=== PATIENT | female | born 1940 | race Caucasian/White ===

== ENCOUNTER → 2016-06-05 | Outpatient (CLI) | payer OTHER ==
[2016-06-05 13:31] LABS: BASO % 0.7 %; BASO ABS # 0.06 K/uL (0-0.2); COMPLETE YES; EOS % 1.8 %; HEMATOCRIT 41.6 % (37-47); IG% 0.1 %; LYMPH % 40.2 %; LYMPH ABS # 3.27 K/uL (1.2-3.4); MEAN CELL VOLUME 86.7 fL (80-100); MEAN CORPUSCULAR HEMOGLOBIN 27.9 pg (25-34); MEAN CORPUSCULAR HGB CONC 32.2 g/dl (32-36); MEAN PLATELET VOLUME 9.1 fL (7.4-10.4); NEUT % 48.2 %; PLATELET COUNT 282 K/uL (130-400); WHITE BLOOD COUNT 8.13 K/uL (4.8-10.8)
[2016-06-05 13:41] LABS: BLOOD UREA NITROGEN 10 mg/dl (7-18); CREATININE 0.92 mg/dl (0.60-1.20); GLUCOSE 112 mg/dl (70-99)
[2016-06-05 13:42] LABS: AST/SGOT 8 U/L (15-37); BUN/CREATININE RATIO 10.9 (10-20); CALCIUM 9.3 mg/dl (8.5-10.1); CARBON DIOXIDE 28 mmol/L (21-32); CHLORIDE 105 mmol/L (98-107); SODIUM 141 mmol/L (136-145)
[2016-06-05 13:52] LABS: ALT/SGPT 14 U/L (12-78); CHOLESTEROL 214 mg/dl (0-200); CHOLESTEROL/HDL RATIO 5.2; HDL CHOLESTEROL 41 mg/dl; LDL CHOLESTEROL CALCULATED 133 mg/dl; TRIGLYCERIDES 199 mg/dl (0-150); VERY LOW DENSITY LIPOPROT CALC 40 mg/dl
== END | disposition home or self-care (01) ==
LOC: C.LABMFLN 14:06
PROVIDERS: ATTEND Family Medicine
DX: E78.00 Pure hypercholesterolemia, unspecified (principal); K11.7 Disturbances of salivary secretion; R53.82 Chronic fatigue, unspecified

== ENCOUNTER → 2016-07-01 | Outpatient (CLI) | payer OTHER ==
[2016-07-01 18:13] LABS: THYROID STIMULATING HORMONE 4.27 uIu/ml (0.300-4.500)
== END | disposition home or self-care (01) ==
LOC: C.LABMFLN 07:40
PROVIDERS: ATTEND Family Medicine
DX: R94.6 Abnormal results of thyroid function studies (principal)

== ENCOUNTER → 2016-08-18 | Outpatient (CLI) | payer OTHER | END | disposition home or self-care (01) | LOC: C.LABMFLN 15:22 | PROVIDERS: ATTEND Family Medicine | DX: M81.0 Age-related osteoporosis without current pathological fracture (principal); E03.9 Hypothyroidism, unspecified ==

== ENCOUNTER → 2016-11-17 | Outpatient (CLI) | payer OTHER | END | disposition home or self-care (01) | LOC: C.LABMFLN 15:12 | PROVIDERS: ATTEND Family Medicine | DX: E03.9 Hypothyroidism, unspecified (principal); E21.3 Hyperparathyroidism, unspecified; E55.9 Vitamin D deficiency, unspecified ==

== ENCOUNTER → 2017-07-01 | Outpatient (CLI) | payer OTHER ==
[2017-07-01 18:29] LABS: T3 FREE 2.91 pg/ml (2.30-4.20)
== END | disposition home or self-care (01) ==
LOC: C.LABMFLN 12:48
PROVIDERS: ATTEND Family Medicine
DX: E78.00 Pure hypercholesterolemia, unspecified (principal); E03.9 Hypothyroidism, unspecified; E21.3 Hyperparathyroidism, unspecified; M81.0 Age-related osteoporosis without current pathological fracture; E55.9 Vitamin D deficiency, unspecified

== ENCOUNTER 2023-11-29 15:04 | Inpatient (IN) ==
[2023-11-29] MEDS: methylPREDNISolone 125 MG/2 ML VIAL IV STA (15:52)
[2023-11-29] MEDS: ALBUT/IPRATROP 3MG/0.5MG NEB 3 ML VIAL NEB ONE (15:52)
[2023-11-29 16:08] LABS: HCO3 VBG 30 mmol/L; Oxygen Saturation VBG < 60.0 %; PCO2 VBG 59 mmHg (38-50); PO2 VBG < 20 mmHg; pH VBG 7.31 (7.36-7.41)
--- NOTE | 2023-11-29 16:10 | XRay Report ---
XR chest 1V portable HISTORY: 83 years-old Female sob acute shortness of breath COMPARISON: Chest CT 03/11/2023 TECHNIQUE: AP view of of the chest FINDINGS: Cardiac silhouette is normal. Severe pulmonary emphysema with chronic interstitial coarsening. The krysta jyoti appear grossly intact. Mild bibasilar subsegmental densities. No pneumothorax or pleural effusion . IMPRESSION: 1. Severe pulmonary emphysema. 2. Mild bibasilar opacities may represent atelectasis versus pneumonitis. ACT 112: Negative or not required by law. The above report was generated using voice recognition software. It may contain grammatical, syntax o r spelling errors. Electronically signed by: Tylor Torres M.D. 11/29/2023 4:09 PM
[2023-11-29 16:27] LABS: Basophils # (auto) 0.06 K/uL (0.00-0.20); Basophils % (auto) 0.6 %; Eosinophils # (auto) 0.07 K/uL (0.00-0.50); Eosinophils % (auto) 0.7 %; Hematocrit (blood only) 38.4 % (37.0-47.0); Hemoglobin 12.5 g/dl (12.0-16.0); Immature Granulocytes # (auto) 0.03 K/uL (0.01-0.20); Immature Granulocytes % (auto) 0.3 %; Lymphocytes # (auto) 1.71 K/uL (1.20-3.40); Lymphocytes % (auto) 18.1 %; Mean Corpuscular Hemoglobin 28.5 pg (25.0-34.0); Mean Corpuscular Hgb Conc 32.6 g/dL (32.0-36.0); Mean Corpuscular Volume 87.7 fL (80.0-100.0); Mean Platelet Volume 8.1 fL (9.4-12.4); Monocytes % (auto) 10.6 %; Neutrophils # (auto) 6.59 K/uL (1.40-6.50); Neutrophils % (auto) 69.7 %; Platelet Count 458 K/uL (130-400); RDW Coefficient of Variation 12.8 % (11.5-14.5); RDW Standard Deviation 41.2 fL (36.4-46.3); Red Blood Count 4.38 M/uL (4.20-5.40); White Blood Count 9.46 K/ul (4.8-10.8)
[2023-11-29 16:35] LABS: BUN Creatinine Ratio 9.5 (10-20); Calcium 9.6 mg/dl (8.6-10.3); Est GFR (African American) 88.1 ml/min
[2023-11-29 17:07] LABS: Influenza A virus by PCR Negative (Neg); Influenza B virus by PCR Negative (Neg); RSV by PCR Negative (Neg); SARS CoV2 RNA(COVID-19) Ceph NEGATIVE (Negative)
--- NOTE | 2023-11-29 17:09 | History & Physical Report ---
Date of Service November 29, 2023 Assessment & Plan (1) COPD exacerbation: Plan: Worsening cough and shortness of breath on exertion with significant hypoxia on exertion Cepheid PCR negative Solu-Medrol 125mg IV given in the ER, continue 40mg IV daily Duonebs q4h Formoterol/budesonide Nebs BID Azithromycin 500mg PO daily for 3 days Discussed with patient that likely surgery on will need to be delayed to optimize breathing before (2) Acute respiratory failure with hypoxia and hypercapnia: Plan: Baseline 2LPM O2 Requiring BiPAP initially in the ER but now back on baseline O2 but still with significant exertional even conversational hypoxia Aim O2 sats 88-92% even if this is less than her usual 2 LPM O2 (3) Right upper quadrant abdominal pain: Plan: Reportedly plans for cholecystectomy on after seeing her general surgeon today. Recommend discussing with anesthesia when they wish to perform this after her COPD exacerbation. Low fat diet Plan Hypothyroidism - continue levothyroxine GERD - continue famotidine HTN - continue diltiazem VTE prophylaxis - heparin 5000 units SQ BID Diet - low fat Disposition - observation to med/surg Admission and Anticipated Discharge Date Admission Date: November 29, 2023 History of Present Illness Chief Complaint: Shortness of breath Primary Care Provider: Benny Fong MD Inés Tavarez is an 83-year-old female with COPD who presents to the ER with shortness of breath on exertion for approximately one week. She has a nonproductive cough but feels there is much to cough up but struggling to do so. In the ER after BiPAP, duoneb and Solu-medrol she is back on her baseline oxygen but drops to mid 80s even with full sentences. She reports this feels like her previous COPD exacerbations. Baseline 2 L/min O2 chronically. She has been putting off coming to the emergency room all week as she did not want to miss her surgery appointment which she had earlier today with plans for cholecystectomy due to abdominal pain which has been ongoing intermittently but more frequent episodes since February 2023. She notes this abdominal pain can happen at any time. She has had EGD, colonoscopy, CTs, HIDA scan, MRI without definitive explanation for her pain. She notably does have chronic pancreatitis changes on her CT. This abdominal pain can happen at any time but is more more every day without rhyme or reason, she feels she bloats up and has cramping abdominal pain. Associated nausea and vomiting. The abdominal pain is more on the right side but could also be generalized at times. She reports taking MiraLAX as she gets constipated. She is not currently having abdominal pain when seen in the emergency room. Allergies Allergy/AdvReac Type Severity Reaction Status Date / Time nickel Allergy Intermediate cheap Verified 11/29/23 18:36 jewelry - skin irritation levofloxacin [From Levaquin] Allergy Unknown Unknown Verified 11/29/23 18:36 simvastatin [From Zocor] Allergy Unknown Unknown Verified 11/29/23 18:36 aspirin AdvReac Intermediate stomach Verified 11/29/23 18:36 burning (on an empty stomach) ondansetron [From Zofran] AdvReac Intermediate tremor - Verified 11/29/23 18:36 takes Rx sparingly Home Medications Medication Instructions Recorded Confirmed Type Oxygen humidifier for concentrator #1 ea 03/29/23 11/29/23 Rx ipratropium 20 mcg-albuterol 100 1 puff inhalation QID PRN 04/05/23 11/29/23 Rx mcg/actuation mist for inhalation shortness of breath or wheezing #4 (Combivent Respimat) grams nebulizers #1 ea 04/09/23 11/29/23 Rx levothyroxine 25 mcg tablet 25 mcg PO QAM #30 tabs 07/22/23 11/29/23 Rx cholecalciferol (vitamin D3) 25 1,000 unit PO QAM 07/27/23 11/29/23 History mcg (1,000 unit) capsule (Vitamin D3) cyanocobalamin (vitamin B-12) 1,000 mcg PO QAM 07/27/23 11/29/23 History 1,000 mcg capsule guaifenesin 600 mg tablet, 1,200 mg PO BID PRN Congestion 07/27/23 11/29/23 History extended release 12 hr (Mucinex) mirtazapine 30 mg tablet 30 mg PO HS 07/27/23 11/29/23 History Portable Oxygen #1 ea 08/26/23 11/29/23 Rx ipratropium 0.5 mg-albuterol 3 mg 3 ml inhalation Q4H PRN wheezing 08/26/23 11/29/23 Rx (2.5 mg base)/3 mL nebulization #180 mL soln diltiazem HCl 120 mg capsule,24 120 mg PO QAM #90 caps 09/17/23 11/29/23 Rx hr,extended release famotidine 20 mg tablet 20 mg PO BID #60 tabs 09/22/23 11/29/23 Rx Wheeled Walker #1 ea 10/04/23 11/29/23 Rx hyoscyamine sulfate 0.125 mg 0.125 mg sublingual BID PRN 10/11/23 11/29/23 Rx sublingual tablet abdominal pain #60 tabs fluoxetine 20 mg capsule 20 mg PO QAM #90 caps 10/27/23 11/29/23 Rx ondansetron HCl 4 mg tablet 4 mg PO Q6H PRN nausea and 11/24/23 11/29/23 Rx vomiting 7 days #60 tabs lorazepam 0.5 mg tablet 0.5 mg PO QID PRN anxiety #120 tabs 11/29/23 11/29/23 Rx Past Med/Surg History Problem List (Updated 11/29/23 @ 23:18 by Per Lott MD) Right upper quadrant abdominal pain Acute respiratory failure with hypoxia and hypercapnia Chronic obstructive pulmonary disease (Acute) Hypoxia (Acute) Weight loss, non-intentional Pulmonary infiltrate Ambulatory dysfunction Cough Hyponatremia Iron deficiency anemia Blood in stool Nausea Epigastric abdominal pain Constipation Dilated pancreatic duct Chronic pancreatitis IPMN (intraductal papillary mucinous neoplasm) Insomnia Chronic bronchitis Chronic respiratory failure with hypoxia Exertional shortness of breath COPD with emphysema Encounter for tobacco use cessation counseling Anxiety Hypoxia COPD exacerbation LLL pneumonia Pancreatic abnormality Hypothyroidism Abnormal weight loss Close exposure to 2019-nCoV Chronic constipation Abnormality of pancreatic duct Abdominal pain Abnormal weight loss COPD mixed type Tobacco abuse Chest pain Dyspnea SVT (supraventricular tachycardia) Abnormal weight loss Intermittent palpitations Chest discomfort Poison ramon dermatitis Hand pain Medicare annual wellness visit, subsequent Medicare annual wellness visit, initial Abnormal thyroid blood test (Acute) Allergic rhinitis (Acute) Chronic low back pain (Acute) Chronic obstructive pulmonary disease (Acute) Depression (Acute) Fatigue (Acute) Generalized anxiety disorder (Acute) Hypercholesterolemia (Acute) Hyperlipidemia (Acute) Hyperparathyroidism (Acute) Hypothyroidism (Acute) Osteoporosis (Acute) Tobacco use (Acute) Vitamin D deficiency (Acute) Medical History Dilated pancreatic duct Chronic cough Hypercholesteremia Chronic low back pain Chronic constipation SOBOE (shortness of breath on exertion) IPMN (intraductal papillary mucinous neoplasm) Hx of chronic respiratory failure Fecal occult blood test positive (06/21/23) Generalized weakness Hx of chest pain pt denies having chest pain or heart attack in the past Abdominal pain "comes and goes" with bloating and acid reflux symptoms. Chronic bronchitis Chronic pancreatitis per record, including record of Intraductal Papillary mucinous neoplasm - pt denies have any problems with her pancreas. Hx of supraventricular tachycardia per chart - pt unsure of details, thinks it is controlled w/ diltiazem, does not follow w/ cardio Chronic nausea Osteoporosis Osteoarthritis Insomnia Chronic fatigue Iron deficiency anemia Hypothyroidism Depression Anxiety Hyperlipidemia Hypertension History of pneumonia 03/2023. treated inpatient in 04/2023 at [facility] for respiratory failure. discharged home on 2lpm of oxygen continuously. On home oxygen therapy 2lpm via n/c continuously. Chronic obstructive pulmonary disease Surgical History History of esophagogastroduodenoscopy (EGD) (2021) History of colonoscopy (2021) History of tonsillectomy and adenoidectomy H/O breast biopsy benign Family History Mother Myocardial infarction Father Cancer Other No family history of adverse response to anesthesia Social History Smoking Status: Former smoker Tobacco Type: Cigarettes Age Started Using Tobacco: 22; Age Quit Using Tobacco: 82; packs per day: 0.75; Second Hand Exposure: Yes (hx); Do You Dip or Chew Tobacco: No; Hx Alcohol Use: No Hx Substance Use: No Preferred Language: Austrian Communication Ability: Effective Pile Header Required: No Beliefs That Will Affect Care: None marital status: Current Living Situation: Spouse current occupational status: unemployed Feels Safe at Home: Yes Dental Care, Regularly: No Physical Activity Frequency: Does not Exercise Seatbelt Use: always Sunscreen Use: Yes Assistive Devices: Glasses, Nebulizer, Oxygen - at Night and Oxygen - Continuous Review of Systems Review of Systems: All systems reviewed & are unremarkable except as noted in HPI & below Physical Exam Constitutional: WD/WN, vitals as above Eyes: PERRL, conjunctivae normal, anicteric sclerae ENMT: external ear and nose normal, oropharynx normal Respiratory: + labored breathing, + uses accessory mu scles, + cough and + tachypneic; + not able to speak in complete sentence Auscultation: + diminished lung sounds (throughout) and + wheezes (mild end expiratory); no crackles Cardiovascular: RRR, no murmur, no edema Gastrointestinal (Abdomen): Inspection/Auscultation: abdomen normal to inspection; abdomen not distended Percussion/Palpation: + abdomen tender (RUQ) and abdomen soft; no guarding and abdomen not rigid Musculoskeletal: no cyanosis or clubbing, extremities motor strength 5/5 Skin: no rashes, warm and dry Neurologic: moves all extremities and awake; not confused Psychiatric: A+Ox3, euthymic affect Results & Data Results & Data Vital Signs (Past 12 Hours) Vital Signs Temp Pulse Pulse Resp BP BP Pulse Ox 11/29/23 17:04 84 20 146/86 H 97 11/29/23 16:03 73 11/29/23 16:01 153/82 H 11/29/23 15:51 87 29 H 99 11/29/23 15:50 90 30 H 99 11/29/23 15:50 71 L 11/29/23 15:38 36.8 C 91 H 19 146/89 H 83 L O2 Del Method O2 Flow Rate 11/29/23 17:04 Nasal Cannula 2 11/29/23 16:03 11/29/23 16:01 11/29/23 15:51 Nasal Cannula 9 11/29/23 15:50 Oxymask 9 11/29/23 15:50 Oxymask 11/29/23 15:38 Nasal Cannula 2 Laboratory Results Abnormal lab results 11/29/23 Range/Units 15:52 Plt Count 458 H (130-400) K/uL MPV 8.1 L (9.4-12.4) fL Neut # (Auto) 6.59 H (1.40-6.50) K/uL [place] # (Auto) 1.00 H (0.11-0.59) K/uL VBG pH 7.31 L (7.36-7.41) VBG pCO2 59 H (38-50) mmHg Sodium 132 L (136-145) mmol/L Chloride 93 L (98-107) mmol/L BUN/Creatinine Ratio 9.5 L (10-20) Glucose 106 H (70-99(Fasting)) mg/dl Diagnostic Findings XR chest 1V portable HISTORY: 83 years-old Female sob acute shortness of breath COMPARISON: Chest CT 03/11/2023 TECHNIQUE: AP view of of the chest FINDINGS: Cardiac silhouette is normal. Severe pulmonary emphysema with chronic interstitial coarsening. The bones appear grossly intact. Mild bibasilar subsegmental densities. No pneumothorax or pleural effusion. IMPRESSION: 1. Severe pulmonary emphysema. 2. Mild bibasilar opacities may represent atelectasis versus pneumonitis. Medications Administered ER medications given: DuoNeb 12 mL neb Solu-Medrol 125 mg IV ECG Rate (beats per minute): 71 Rhythm: normal sinus Findings: no acute ischemic change Comparison ECG Date: no prior available Code Status & VTE Plan Code Status Full VTE Prophylaxis Plan VTE Prophylaxis will be ordered: Yes PG Care Time/CCT Total # of Minutes Spent Total Time Spent with Patient: Total time spent is greater than 50% in coordination of care (as documented) at patient's floor/unit and/or counseling patient: Coding Level of Care Code 59606 INT INP/OBS CARE 2/55MIN Diagnoses COPD exacerbation J44.1 Acute respiratory failure with hypoxia and hypercapnia J96.01; J96.02 Right upper quadrant abdominal pain R10.11
--- NOTE | 2023-11-29 17:41 | Emergency Department Note ---
History of Present Illness General Chief Complaint: Shortness of Breath/Dyspnea Stated Complaint: DIFFICULTY BREATHING Time Seen by Provider: 11/29/23 15:44 History of Present Illness Provider Complaint: shortness of breath and cough Onset (ago): week(s) (1) Severity: similar to previous episodes Consistency/Duration: + progressively worsening Relieved By: + nothing Exacerbated By: + exertion and + coughing Known history of: COPD Associated symptoms: + cough and + wheezing; no fever, no hemoptysis or no chest congestion Treatment prior to arrival: bronchodilator Related Data Home oxygen amount: 2 liters Home Medications Medication Instructions Recorded Confirmed Type Oxygen humidifier for concentrator #1 ea 03/29/23 11/29/23 Rx ipratropium 20 mcg-albuterol 100 1 puff inhalation QID PRN 04/05/23 11/29/23 Rx mcg/actuation mist for inhalation shortness of breath or wheezing #4 (Combivent Respimat) grams nebulizers #1 ea 04/09/23 11/29/23 Rx levothyroxine 25 mcg tablet 25 mcg PO QAM #30 tabs 07/22/23 11/29/23 Rx cholecalciferol (vitamin D3) 25 1,000 unit PO QAM 07/27/23 11/29/23 History mcg (1,000 unit) capsule (Vitamin D3) cyanocobalamin (vitamin B-12) 1,000 mcg PO QAM 07/27/23 11/29/23 History 1,000 mcg capsule guaifenesin 600 mg tablet, 1,200 mg PO BID PRN Congestion 07/27/23 11/29/23 History extended release 12 hr (Mucinex) mirtazapine 30 mg tablet 30 mg PO HS 07/27/23 11/29/23 History Portable Oxygen #1 ea 08/26/23 11/29/23 Rx ipratropium 0.5 mg-albuterol 3 mg 3 ml inhalation Q4H PRN wheezing 08/26/23 11/29/23 Rx (2.5 mg base)/3 mL nebulization #180 mL soln diltiazem HCl 120 mg capsule,24 120 mg PO QAM #90 caps 09/17/23 11/29/23 Rx hr,extended release famotidine 20 mg tablet 20 mg PO BID #60 tabs 09/22/23 11/29/23 Rx prednisone 20 mg tablet 20 mg PO DAILY 10/01/23 11/29/23 History Wheeled Walker #1 ea 10/04/23 11/29/23 Rx hyoscyamine sulfate 0.125 mg 0.125 mg sublingual BID PRN 10/11/23 11/29/23 Rx sublingual tablet abdominal pain #60 tabs fluoxetine 20 mg capsule 20 mg PO QAM #90 caps 10/27/23 11/29/23 Rx ondansetron HCl 4 mg tablet 4 mg PO Q6H PRN nausea and 11/24/23 11/29/23 Rx vomiting 7 days #60 tabs lorazepam 0.5 mg tablet 0.5 mg PO QID PRN anxiety #120 tabs 11/29/23 11/29/23 Rx Allergies Allergy/AdvReac Type Severity Reaction Status Date / Time nickel Allergy Intermediate cheap Verified 11/29/23 13:30 jewelry - skin irritation levofloxacin [From Levaquin] Allergy Unknown Unknown Verified 11/29/23 13:30 simvastatin [From Zocor] Allergy Unknown Unknown Verified 11/29/23 13:30 aspirin AdvReac Intermediate stomach Verified 11/29/23 13:30 burning (on an empty stomach) ondansetron [From Zofran] AdvReac Intermediate tremor - Verified 11/29/23 13:30 takes Rx sparingly Past Med/Surg History Problem List (Updated 11/29/23 @ 17:47 by Background Daemon) Chronic obstructive pulmonary disease (Acute) Hypoxia (Acute) Weight loss, non-intentional Pulmonary infiltrate Ambulatory dysfunction Cough Hyponatremia Iron deficiency anemia Blood in stool Nausea Epigastric abdominal pain Constipation Dilated pancreatic duct Chronic pancreatitis IPMN (intraductal papillary mucinous neoplasm) Insomnia Chronic bronchitis Chronic respiratory failure with hypoxia Exertional shortness of breath COPD with emphysema Encounter for tobacco use cessation counseling Anxiety Hypoxia COPD exacerbation LLL pneumonia Pancreatic abnormality Hypothyroidism Abnormal weight loss Close exposure to 2019-nCoV Chronic constipation Abnormality of pancreatic duct Abdominal pain Abnormal weight loss COPD mixed type Tobacco abuse Chest pain Dyspnea SVT (supraventricular tachycardia) Abnormal weight loss Intermittent palpitations Chest discomfort Poison ramon dermatitis Hand pain Medicare annual wellness visit, subsequent Medicare annual wellness visit, initial Abnormal thyroid blood test (Acute) Allergic rhinitis (Acute) Chronic low back pain (Acute) Chronic obstructive pulmonary disease (Acute) Depression (Acute) Fatigue (Acute) Generalized anxiety disorder (Acute) Hypercholesterolemia (Acute) Hyperlipidemia (Acute) Hyperparathyroidism (Acute) Hypothyroidism (Acute) Osteoporosis (Acute) Tobacco use (Acute) Vitamin D deficiency (Acute) Medical History Dilated pancreatic duct Chronic cough Hypercholesteremia Chronic low back pain Chronic constipation SOBOE (shortness of breath on exertion) IPMN (intraductal papillary mucinous neoplasm) Hx of chronic respiratory failure Fecal occult blood test positive (06/21/23) Generalized weakness Hx of chest pain pt denies having chest pain or heart attack in the past Abdominal pain "comes and goes" with bloating and acid reflux symptoms. Chronic bronchitis Chronic pancreatitis per record, including record of Intraductal Papillary mucinous neoplasm - pt denies have any problems with her pancreas. Hx of supraventricular tachycardia per chart - pt unsure of details, thinks it is controlled w/ diltiazem, does not follow w/ cardio Chronic nausea Osteoporosis Osteoarthritis Insomnia Chronic fatigue Iron deficiency anemia Hypothyroidism Depression Anxiety Hyperlipidemia Hypertension History of pneumonia 03/2023. treated inpatient in 04/2023 at [facility] for respiratory failure. discharged home on 2lpm of oxygen continuously. On home oxygen therapy 2lpm via n/c continuously. Chronic obstructive pulmonary disease Surgical History History of esophagogastroduodenoscopy (EGD) (2021) History of colonoscopy (2021) History of tonsillectomy and adenoidectomy H/O breast biopsy benign Family History Mother Myocardial infarction Father Cancer Other No family history of adverse response to anesthesia Social History Smoking Status: Former smoker Tobacco Type: Cigarettes Age Started Using Tobacco: 22; Age Quit Using Tobacco: 82; packs per day: 0.75; Second Hand Exposure: Yes (hx); Do You Dip or Chew Tobacco: No; Hx Alcohol Use: No Hx Substance Use: No Preferred Language: Bengali Communication Ability: Effective Technical Illustrations Map Inker Required: No Beliefs That Will Affect Care: None marital status: Current Living Situation: Spouse current occupational status: unemployed Feels Safe at Home: Yes Dental Care, Regularly: No Physical Activity Frequency: Does not Exercise Seatbelt Use: always Sunscreen Use: Yes Assistive Devices: Glasses, Nebulizer, Oxygen - at Night and Oxygen - Continuous Physical Exam 2 Vital Signs: Vital Signs - 24 hr 11/29/23 15:38 11/29/23 15:50 11/29/23 15:50 Temperature 36.8 C Temperature Source Temporal Artery Sc an Pulse Rate 91 H Pulse Rate [Apical ] 90 Pulse Rate from Sp O2 Sensor Respiratory Rate 19 30 H Respiratory Effort / Characteristics Non-Labored Sponta neous Short of Breath Respiratory Depth Normal Respiratory Patter n Blood Pressure 146/89 H Blood Pressure [Le ft Arm] Blood Pressure Mabel n 108 Blood Pressure Mabel n [Left Arm] Blood Pressure Pos ition Sitting Pulse Oximetry 83 L 71 L 99 Oxygen Delivery Me thod Nasal Cannula Oxymask Oxymask Oxygen Flow Rate 2 9 Sepsis Recent Feve r Within 48 Hours No Sepsis New/Unexpla ined Change in Men trae Status No Sepsis Action Take n by Nursing No Action Required Oxygen Flow Rate - Titration 9 Pulse Oximetry Pos t Tiitration 99 11/29/23 15:51 11/29/23 16:01 11/29/23 16:03 Temperature Temperature Source Pulse Rate 87 73 Pulse Rate [Apical ] Pulse Rate from Sp O2 Sensor Respiratory Rate 29 H Respiratory Effort / Characteristics Respiratory Depth Respiratory Patter n Blood Pressure 153/82 H Blood Pressure [Le ft Arm] Blood Pressure Mabel n 128 Blood Pressure Mabel n [Left Arm] Blood Pressure Pos ition Pulse Oximetry 99 Oxygen Delivery Me thod Nasal Cannula Oxygen Flow Rate 9 Sepsis Recent Feve r Within 48 Hours Sepsis New/Unexpla ined Change in Men trae Status Sepsis Action Take n by Nursing Oxygen Flow Rate - Titration Pulse Oximetry Pos t Tiitration 11/29/23 16:21 11/29/23 16:30 11/29/23 16:30 Temperature Temperature Source Pulse Rate 82 82 Pulse Rate [Apical ] Pulse Rate from Sp O2 Sensor 82 82 Respiratory Rate 22 24 Respiratory Effort / Characteristics Respiratory Depth Respiratory Patter n Blood Pressure 139/77 Blood Pressure [Le ft Arm] Blood Pressure Mabel n 86 Blood Pressure Mabel n [Left Arm] Blood Pressure Pos ition Pulse Oximetry 100 98 Oxygen Delivery Me thod Oxygen Flow Rate Sepsis Recent Feve r Within 48 Hours Sepsis New/Unexpla ined Change in Men trae Status Sepsis Action Take n by Nursing Oxygen Flow Rate - Titration Pulse Oximetry Pos t Tiitration 11/29/23 16:51 11/29/23 17:00 11/29/23 17:00 Temperature Temperature Source Pulse Rate 82 81 Pulse Rate [Apical ] Pulse Rate from Sp O2 Sensor 82 82 Respiratory Rate 21 Respiratory Effort / Characteristics Respiratory Depth Respiratory Patter n Blood Pressure 142/74 H Blood Pressure [Le ft Arm] Blood Pressure Mabel n 103 Blood Pressure Mabel n [Left Arm] Blood Pressure Pos ition Pulse Oximetry 98 99 Oxygen Delivery Me thod Oxygen Flow Rate Sepsis Recent Feve r Within 48 Hours Sepsis New/Unexpla ined Change in Men trae Status Sepsis Action Take n by Nursing Oxygen Flow Rate - Titration Pulse Oximetry Pos t Tiitration 11/29/23 17:04 11/29/23 17:05 11/29/23 17:18 Temperature Temperature Source Pulse Rate 81 Pulse Rate [Apical ] 84 Pulse Rate from Sp O2 Sensor 80 Respiratory Rate 20 20 Respiratory Effort / Characteristics Non-Labored Sponta neous Respiratory Depth Normal Respiratory Patter n Regular Blood Pressure 146/86 H Blood Pressure [Le ft Arm] 146/86 H Blood Pressure Mabel n 121 Blood Pressure Mabel n [Left Arm] 106 Blood Pressure Pos ition Pulse Oximetry 97 98 Oxygen Delivery Me thod Nasal Cannula Oxygen Flow Rate 2 Sepsis Recent Feve r Within 48 Hours Sepsis New/Unexpla ined Change in Men trae Status Sepsis Action Take n by Nursing Oxygen Flow Rate - Titration Pulse Oximetry Pos t Tiitration Physical Exam: Physical Exam GENERAL: Cachectic and ill-appearing. HENT: Exam performed. - Head: Normocephalic and atraumatic. EYES: Conjunctivae and EOM are normal. Right eye exhibits no discharge. Left eye exhibits no discharge. No scleral icterus. NECK: Normal range of motion. Neck supple. No JVD present. CV: Normal rate, regular rhythm, normal heart sounds and intact distal pulses. There is no peripheral edema. Palpable radial pulses bue. PULM/CHEST: Diffuse expiratory wheezes bilaterally. Tachypneic. ABD: The abdomen is soft. There is no tenderness. NEURO: Motor and sensation grossly intact. SKIN: Skin is warm and dry. He is not diaphoretic. PSYCH: normal mood and affect. Behavior is normal. Judgment and thought content normal. Course Course 1544: The patient was evaluated in room B7. A complete history and physical exam was performed Cardiac monitoring: An order was placed for continuous cardiac monitoring. The monitor shows a rate of 90 with sinus rhythm interpreted by Patient was found to be hypoxic on her home 2 L nasal cannula at 70% on room air. Patient was quickly transitioned to nonrebreather. Will give hour-long breathing treatment and start the patient on BiPAP. Solu-Medrol also ordered for the patient. 1615: Patient tolerating BiPAP well. 1743: Vital signs stable. Patient was able to be transitioned from BiPAP to a regular 2 L nasal cannula after receiving BiPAP for some time and hour-long DuoNeb treatment. Patient states she feels much better. Chest x-ray unremarkable. Labs show white blood cell count 9.46 hemoglobin 12.5 VBG venous pH 7.31 venous pCO2 59. COVID and RSV negative. [facility] Dr. Lott currently evaluating the patient. Administered Medications Discontinued Medications Albuterol (Albut/Ipratrop 3mg/0.5mg Neb 3 Ml Vial) 12 ml NEB ONE ONE; Protocol Stop: 11/29/23 15:49 Last Admin: 11/29/23 15:52 Dose: 12 ml Documented By: MARIA G Methylprednisolone (Methylprednisolone 125 Mg/2 Ml Vial) 125 mg IV NOW STA Stop: 11/29/23 15:49 Last Admin: 11/29/23 15:52 Dose: 125 mg Documented By: MARIA G Medical Decision Making Laboratory Data Attestation: I reviewed the patient's lab results. 11/29/23 15:52 11/29/23 15:52 Lab Results 11/29/23 Range/Units 15:52 WBC 9.46 (4.8-10.8) K/ul RBC 4.38 (4.20-5.40) M/uL Hgb 12.5 (12.0-16.0) g/dl Hct 38.4 (37.0-47.0) % MCV 87.7 (80.0-100.0) fL MCH 28.5 (25.0-34.0) pg MCHC 32.6 (32.0-36.0) g/dL RDW Std Deviation 41.2 (36.4-46.3) fL RDW Coeff of Samy 12.8 (11.5-14.5) % Plt Count 458 H (130-400) K/uL MPV 8.1 L (9.4-12.4) fL Immature Gran % (Auto) 0.3 % Neut % (Auto) 69.7 % Lymph % (Auto) 18.1 % [place] % (Auto) 10.6 % Eos % (Auto) 0.7 % Baso % (Auto) 0.6 % Neut # (Auto) 6.59 H (1.40-6.50) K/uL Lymph # (Auto) 1.71 (1.20-3.40) K/uL [place] # (Auto) 1.00 H (0.11-0.59) K/uL Eos # (Auto) 0.07 (0.00-0.50) K/uL Baso # (Auto) 0.06 (0.00-0.20) K/uL Immature Gran # (Auto) 0.03 (0.01-0.20) K/uL VBG pH 7.31 L (7.36-7.41) VBG pCO2 59 H (38-50) mmHg VBG pO2 < 20 mmHg VBG HCO3 30 mmol/L VBG O2 Saturation < 60.0 % VBG Base Excess 2.0 mEq/L Sodium 132 L (136-145) mmol/L Potassium 4.0 (3.5-5.1) mmol/L Chloride 93 L (98-107) mmol/L Carbon Dioxide 29 (21-32) mmol/L Anion Gap 10 (3-11) BUN 7 (6-23) mg/dl Creatinine 0.74 (0.6-1.2) mg/dl Est Cr Clr Drug Dosing 35.0 ml/min Est GFR ( Amer) 88.1 ml/min Est GFR (Non-Af Amer) 76.0 ml/min BUN/Creatinine Ratio 9.5 L (10-20) Glucose 106 H (70-99(Fasting)) mg/dl Calcium 9.6 (8.6-10.3) mg/dl SARS-CoV-2 (PCR) NEGATIVE (Negative) Influenza Type A (PCR) Negative (Neg) Influenza Type B (PCR) Negative (Neg) RSV (RT-PCR) Negative (Neg) Imaging Data Attestation: I personally reviewed and interpreted this imaging study as follows: My Impression: Chest x-ray: Emphysematous changes no acute infiltrate or pneumothorax. Radiologist's Impression: Chest X-Ray 11/29/23 15:48 XR chest 1V portable HISTORY: 83 years-old Female sob acute shortness of breath COMPARISON: Chest CT 03/11/2023 TECHNIQUE: AP view of of the chest FINDINGS: Cardiac silhouette is normal. Severe pulmonary emphysema with chronic interstitial coarsening. The bones appear grossly intact. Mild bibasilar subsegmental densities. No pneumothorax or pleural effusion. IMPRESSION: 1. Severe pulmonary emphysema. 2. Mild bibasilar opacities may represent atelectasis versus pneumonitis. ACT 112: Negative or not required by law. The above report was generated using voice recognition software. It may contain grammatical, syntax or spelling errors. Electronically signed by: Tylor Torres M.D. 11/29/2023 4:09 PM ECG Data Attestation: I personally reviewed and interpreted this ECG as follows: Interpretation: Sinus rhythm with rate of 71. IA 144 QRS [address] elevation or ST depression. [facility] Narrative 1544: The patient was evaluated in room B7. A complete history and physical exam was performed Cardiac monitoring: An order was placed for continuous cardiac monitoring. The monitor shows a rate of 90 with sinus rhythm interpreted by me Patient was found to be hypoxic on her home 2 L nasal cannula at 70% on room air. Patient was quickly transitioned to nonrebreather. Will give hour-long breathing treatment and start the patient on BiPAP. Solu-Medrol also ordered for the patient. 1615: Patient tolerating BiPAP well. 1743: Vital signs stable. Patient was able to be transitioned from BiPAP to a regular 2 L nasal cannula after receiving BiPAP for some time and hour-long DuoNeb treatment. Patient states she feels much better. Chest x-ray unremarkable. Labs show white blood cell count 9.46 hemoglobin 12.5 VBG venous pH 7.31 venous pCO2 59. COVID and RSV negative. Patient [facility] be [facility]. Dr. Lott currently evaluating the patient. Impression & Plan Hypoxia, Chronic obstructive pulmonary disease Critical Care Time Critical Care Time: Yes Total Critical Care Time: 64 I have personally spent greater than 64 minutes of critical care time in the direct management of this patient. This includes bedside care, interpretation of diagnostic studies, and testing, discussion with consultants, patient, and family members, and other required patient management activities. This 64 minutes is in excess of all separately billable procedures. Discharge Plan Visit Data Chief Complaint: Shortness of Breath/Dyspnea Stated Complaint: DIFFICULTY BREATHING ED Provider: Tera Munoz Discharge Problem: Hypoxia, Chronic obstructive pulmonary disease Patient Disposition: Being Evaluated by Hospitalist Forms Stand Alone Forms: [facility] Prescriptions Prescriptions: No Action (DME) Oxygen humidifier for concentrator See Rx Instructions .Route .MEDSUPPLY Qty: 1 0RF Rx Instructions: As directed Combivent Respimat 20-100 mcg/actuation mist 1 puff inhalation QID PRN (Reason: shortness of breath or wheezing) Qty: 4 11RF Rx Instructions: space evenly during waking hours levothyroxine 25 mcg tablet 25 mcg PO QAM Qty: 30 11RF Rx Instructions: Take about 30 minutes prior to other medication and food. diltiazem HCl 120 mg capsule,extended release 24 hr 120 mg PO QAM Qty: 90 3RF (DME) Wheeled Walker Mis See Rx Instructions .Route Qty: 1 0RF Rx Instructions: [place]rell size, with hand brakes and seat hyoscyamine sulfate 0.125 mg tablet, sublingual 0.125 mg sublingual BID PRN (Reason: abdominal pain) Qty: 60 2RF fluoxetine 20 mg capsule 20 mg PO QAM Qty: 90 3RF ondansetron HCl 4 mg tablet 4 mg PO Q6H PRN (Reason: nausea and vomiting) 7 Days Qty: 60 2RF lorazepam 0.5 mg tablet 0.5 mg PO QID PRN (Reason: anxiety) Qty: 120 0RF (DME) nebulizers [facility] [place] See Rx Instructions .Route Qty: 1 0RF Rx Instructions: As directed ipratropium-albuterol 0.5 mg-3 mg(2.5 mg base)/3 mL solution for nebulization 3 ml inhalation Q4H PRN (Reason: wheezing) Qty: 180 5RF (DME) Portable Oxygen [facility] [place] See Rx Instructions .MEDSUPPLY Qty: 1 0RF Rx Instructions: Oxygen 2 liters continuous at rest and 4 L continuous via nasal cannula on exertion with portable concentrator. ALEXANDRE 99 prednisone 20 mg tablet 20 mg PO DAILY famotidine 20 mg tablet 20 mg PO BID Qty: 60 5RF mirtazapine 30 mg tablet 30 mg PO HS Rx Instructions: for appetite, sleep, and mood. cholecalciferol (vitamin D3) [Vitamin D3] 25 mcg (1,000 unit) capsule 1,000 unit PO QAM guaifenesin [Mucinex] 600 mg tablet extended release 12hr 1,200 mg PO BID PRN (Reason: Congestion) cyanocobalamin (vitamin B-12) 1,000 mcg capsule 1,000 mcg PO QAM Referrals Referrals: Benny Fong MD [Primary Care Provider] -
[2023-11-29] MEDS: AZITHROMYCIN 250 MG TAB PO ONE (18:09)
[2023-11-29] MEDS: ALBUT/IPRATROP 3MG/0.5MG NEB 3 ML VIAL ONE (18:17)
[2023-11-29] MEDS: COUGH DROP (SUGAR FREE) LOZ 24 LOZ/1 BOX BUCCAL STA (19:40)
[2023-11-29] MEDS ORDERED: ONDANSETRON INJ 2 MG/ML 2 ML VIAL IV PRN (20:29)
[2023-11-29] MEDS ORDERED: COUGH DROP (SUGAR FREE) LOZ 24 LOZ/1 BOX BUCCAL PRN (20:29)
[2023-11-29] MEDS ORDERED: HYOSCYAMINE SULFATE 0.125 MG TAB PO PRN (20:49)
[2023-11-29] MEDS: FAMOTIDINE 20 MG TAB PO SCH (21:08)
[2023-11-29] MEDS: ALBUT/IPRATROP 3MG/0.5MG NEB 3 ML VIAL NEB SCH (21:08)
[2023-11-29] MEDS: LORazepam 0.5 MG TAB PO PRN (21:08)
[2023-11-29] MEDS: guaiFENesin 600 MG TABCR PO SCH (21:08)
[2023-11-29] MEDS: BUDESONIDE 0.5 MG/2 ML VIAL (PULMICORT) NEB SCH (21:16)
[2023-11-29] MEDS: FORMOTEROL 20 MCG/2 ML VIAL NEB SCH (21:16)
[2023-11-29] MEDS: MIRTAZAPINE TAB 15 MG TAB PO SCH (21:36)
[2023-11-29] MEDS ORDERED: ENOXAPARIN INJ 30 MG/0.3 ML SYR SQ SCH (21:55)
[2023-11-29] MEDS: HEPARIN SOD 5,000 UNIT/0.5 ML VIAL SQ SCH (23:13)
[2023-11-30] MEDS: ACETAMINOPHEN 325 MG TAB PO PRN (02:24)
[2023-11-30] MEDS: SODIUM CHLORIDE 0.65% NA SOLN 45 ML (OCEAN) PRN (03:18)
[2023-11-30] MEDS: LEVOTHYROXINE SODIUM 25 MCG TABLET PO SCH (06:06)
[2023-11-30 06:17] LABS: BUN Creatinine Ratio 15.9 (10-20); Calcium 8.9 mg/dl (8.6-10.3); Creatinine Clr Calc Pharmacy 41.1 ml/min; Est GFR (African American) 97.5 ml/min; Est GFR (Non-African American) 84.1 ml/min
[2023-11-30 06:31] LABS: Hematocrit (blood only) 33.7 % (37.0-47.0); Hemoglobin 11.2 g/dl (12.0-16.0); Immature Granulocytes # (auto) 0.02 K/uL (0.01-0.20); Immature Granulocytes % (auto) 0.5 %; Lymphocytes # (auto) 0.52 K/uL (1.20-3.40); Lymphocytes % (auto) 13.4 %; Mean Corpuscular Hemoglobin 28.5 pg (25.0-34.0); Mean Corpuscular Hgb Conc 33.2 g/dL (32.0-36.0); Mean Corpuscular Volume 85.8 fL (80.0-100.0); Mean Platelet Volume 8.2 fL (9.4-12.4); Monocytes # (auto) 0.07 K/uL (0.11-0.59); Monocytes % (auto) 1.8 %; Neutrophils # (auto) 3.27 K/uL (1.40-6.50); Neutrophils % (auto) 84.3 %; Platelet Count 362 K/uL (130-400); RDW Coefficient of Variation 12.5 % (11.5-14.5); RDW Standard Deviation 39.2 fL (36.4-46.3); Red Blood Count 3.93 M/uL (4.20-5.40); White Blood Count 3.88 K/ul (4.8-10.8)
[2023-11-30] MEDS: CYANOCOBALAMIN (B-12) 500 MCG TABLET PO SCH (08:19)
[2023-11-30] MEDS: dilTIAZem HCL 120 MG CAPCR PO SCH (08:20)
[2023-11-30] MEDS: CHOLECALCIFEROL 25 MCG (1000 UNITS) TAB PO SCH (08:21)
[2023-11-30] MEDS: AZITHROMYCIN 250 MG TAB PO SCH (08:22)
[2023-11-30] MEDS: methylPREDNISolone 40 MG in SYRINGE 0 ML IV SCH (08:23)
[2023-11-30] MEDS ORDERED: methylPREDNISolone 125 MG/2 ML VIAL IV SCH (09:00)
--- NOTE | 2023-11-30 11:25 | Hospitalist Progress Note ---
Date of Service November 30, 2023 Assessment & Plan (1) COPD exacerbation: Plan: Admitted with Worsening cough and shortness of breath on exertion with significant hypoxia on exertion Cepheid PCR negative Solu-Medrol 125mg IV given in the ER, continue 40mg IV daily Duonebs q4h Formoterol/budesonide Nebs BID Azithromycin 500mg PO daily for 3 days Discussed with patient that likely surgery on will need to be delayed to optimize breathing before She feels over all better today (2) Acute respiratory failure with hypoxia and hypercapnia: Plan: Baseline 2LPM O2 Requiring BiPAP initially in the ER but now back on baseline O2 but still with significant exertional even conversational hypoxia Aim O2 sats 88-92% even if this is less than her usual 2 LPM O2 (3) Right upper quadrant abdominal pain: Plan: Reportedly plans for cholecystectomy on after seeing her general surgeon. Recommend discussing with anesthesia when they wish to perform this after her COPD exacerbation. Low fat diet (4) Underweight: Plan: Looks thin and underweight Add nutritional supplements Plan Hypothyroidism - continue levothyroxine GERD - continue famotidine HTN - continue diltiazem VTE prophylaxis - heparin 5000 units SQ BID Diet - low fat Disposition - observation to med/surg Admission and Anticipated Discharge Date Admission Date: November 29, 2023 Subjective patient seen and examined, says her breathing is better Review of Systems Review of Systems: The patient is awake, alert and oriented 3, thin looking. HEENT--PERRL, EOMI, mucous membranes and oropharynx mildly dry Neck--supple. No JVD. No bruits. Thyroid normal, trachea midline, no adenopathy. Heart--normal S1 and S2. No murmurs, rubs or gallops. Lungs--clear bilaterally, no respiratory distress, no accessory muscle use. Abdomen--normal bowel sounds and soft. Extremities--no cyanosis or clubbing. No edema. Dermatologic--normal skin turgor, normal color, no abnormal lymph nodes, no rash. Neurologic--cranial nerves II through XII grossly intact. Rheumatologic--normal range of motion. Psychiatric--normal affect. Results & Data Results & Data Vital Signs (Past 12 Hours) Vital Signs Temp Pulse Pulse Pulse Resp BP BP 11/30/23 10:06 11/30/23 07:47 97.9 F 82 16 183/78 H 11/30/23 07:47 64 20 11/30/23 01:30 11/30/23 01:30 97.7 F 74 18 183/84 H 11/30/23 01:07 73 14 11/30/23 00:30 67 20 11/30/23 00:30 109/58 L 11/30/23 00:30 103/58 L 11/30/23 00:03 70 18 11/30/23 00:00 109/58 L 11/30/23 00:00 109/58 L 11/29/23 23:54 68 19 Pulse Ox O2 Del Method O2 Flow Rate 11/30/23 10:06 Nasal Cannula 2 11/30/23 07:47 96 Nasal Cannula 2 11/30/23 07:47 97 Nasal Cannula 2 11/30/23 01:30 Nasal Cannula 2 11/30/23 01:30 94 Nasal Cannula 2 11/30/23 01:07 98 Nasal Cannula 2 11/30/23 00:30 98 11/30/23 00:30 11/30/23 00:30 11/30/23 00:03 97 11/30/23 00:00 11/30/23 00:00 11/29/23 23:54 97 PG Care Time/CCT Total # of Minutes Spent Total Time Spent with Patient: Total time spent is greater than 50% in coordination of care (as documented) at patient's floor/unit and/or counseling patient: Coding Level of Care Code 66314 SUB INP/OBS CARE 2/35MIN Diagnoses COPD exacerbation J44.1 Acute respiratory failure with hypoxia and hypercapnia J96.01; J96.02 Right upper quadrant abdominal pain R10.11 Underweight R63.6 Time Spent (min) 35
--- NOTE | 2023-11-30 14:59 | Pulmonary Consultation ---
Date of Consultation November 30, 2023 Assessment & Plan (1) Acute on chronic hypoxic respiratory failure: Certainly could be seen in the setting of COPD exacerbation alone. Reviewing admission documentation shows that the patient had labored breathing with associated accessory muscle use, cough, tachypnea, and associated wheezing. She was aggressively managed with steroids and nebulizers including nebulized Perforomist and budesonide which I would continue at this point. While she does not move a ton of air, I am unable to appreciate any bronchospasm at this point. Agree with additional intravenous dose of Solu-Medrol tomorrow and then consider transitioning to oral dosing. Patient is having fairly moderate symptomatic dyspnea, hypoxia, and tachycardia with any movement. Again, while this certainly could be in the setting of COPD exacerbation alone, the patient has been completing pulmonary rehab recently and had been doing well up until the last few days. Certainly, in a patient who is high risk for decompensation, would recommend evaluating all sources. Will order D-dimer to evaluate for possible thromboembolic process, however this is much less likely. If this were to be positive, would agree with CT PE study. This would also give us to glimpse of the patient's pulmonary anatomy. This may actually be necessary in the near future to evaluate any structural progression given her advanced emphysematous lung changes. (2) COPD with emphysema: Previously on Breztri at home. Would recommend that the patient be provided a spacer while inpatient to use with her Breztri inhaler. Currently though, would continue with budesonide and Perforomist as well as as needed DuoNebs for therapy. Patient could be considered for Ohtuvayre pending this workup. Unfortunately, in reviewing her images and pulmonary function testing, the patient does have advanced, end-stage COPD with severe emphysematous lung changes. Additionally, her diffusion capacity is significantly reduced which is likely driving her symptoms as well. She did have a slight degree of CO2 retention on VB upon arrival, however this is relatively mild and at this point I do not feel that further evaluation for PAP therapy is warranted on this admission. (3) Productive cough: Patient with difficulty clearing her secretions. Given her advanced emphysematous changes seen and decreased pulmonary status, we will provide her hypertonic saline nebulizers to use twice daily. She has a flutter valve which she can use after these as well. We will obtain sputum cultures if she is able to provide them to maintain that she does not have a chronic infection und erlying as well. History of Present Illness Reason for Consultation: COPD Exacerbation Requesting Physician: Dr. Fowler Attending Physician: Michelle Fowler MD History of Present Illness Patient is an 83-year-old female with a significant past medical history of end- stage COPD, emphysematous lungs, prior history of tobacco abuse, chronic respiratory failure with hypoxia, chronic bronchitis, and exertional shortness of breath who had presented to the emergency department on 11/28 with complaints of worsening dyspnea on exertion. The patient had recently started pulmonary rehab at [facility] and felt as though she was doing fairly well. Unfortunately, over the last several days, she reports that she is severely dyspneic with associated tachycardia and shortness of breath with any minimal exertion including using her arms alone. She reports no chest pain. She has reported over the last few weeks where she has had an elevated heart rate into the 150s when she checks on her pulse oximeter. She has had no saturations lower than the 80s. She reports that she is also felt a worsening productive cough, however she describes difficulty mobilizing her secretions. She does feel much better after she is able to expel some of the secretions which she describes as yellowish and sometimes milky colored. She has had no fevers or chills. No recent upper respiratory infections. No recent sick contacts that she is aware of. The patient describes ongoing issues with cramping of her lower legs. She describes no past medical history of pulmonary emboli or thromboembolic disease otherwise. No family history of the same. She is not anticoagulated. Allergies Allergy/AdvReac Type Severity Reaction Status Date / Time nickel Allergy Intermediate cheap Verified 11/29/23 18:36 jewelry - skin irritation levofloxacin [From Levaquin] Allergy Unknown Unknown Verified 11/29/23 18:36 simvastatin [From Zocor] Allergy Unknown Unknown Verified 11/29/23 18:36 aspirin AdvReac Intermediate stomach Verified 11/29/23 18:36 burning (on an empty stomach) ondansetron [From Zofran] AdvReac Intermediate tremor - Verified 11/29/23 18:36 takes Rx sparingly Home Medications Medication Instructions Recorded Confirmed Type Oxygen humidifier for concentrator #1 ea 03/29/23 11/29/23 Rx ipratropium 20 mcg-albuterol 100 1 puff inhalation QID PRN 04/05/23 11/29/23 Rx mcg/actuation mist for inhalation shortness of breath or wheezing #4 (Combivent Respimat) grams nebulizers #1 ea 04/09/23 11/29/23 Rx levothyroxine 25 mcg tablet 25 mcg PO QAM #30 tabs 07/22/23 11/29/23 Rx cholecalciferol (vitamin D3) 25 1,000 unit PO QAM 07/27/23 11/29/23 History mcg (1,000 unit) capsule (Vitamin D3) cyanocobalamin (vitamin B-12) 1,000 mcg PO QAM 07/27/23 11/29/23 History 1,000 mcg capsule guaifenesin 600 mg tablet, 1,200 mg PO BID PRN Congestion 07/27/23 11/29/23 History extended release 12 hr (Mucinex) mirtazapine 30 mg tablet 30 mg PO HS 07/27/23 11/29/23 History Portable Oxygen #1 ea 08/26/23 11/29/23 Rx ipratropium 0.5 mg-albuterol 3 mg 3 ml inhalation Q4H PRN wheezing 08/26/23 11/29/23 Rx (2.5 mg base)/3 mL nebulization #180 mL soln diltiazem HCl 120 mg capsule,24 120 mg PO QAM #90 caps 09/17/23 11/29/23 Rx hr,extended release famotidine 20 mg tablet 20 mg PO BID #60 tabs 09/22/23 11/29/23 Rx Wheeled Walker #1 ea 10/04/23 11/29/23 Rx hyoscyamine sulfate 0.125 mg 0.125 mg sublingual BID PRN 10/11/23 11/29/23 Rx sublingual tablet abdominal pain #60 tabs fluoxetine 20 mg capsule 20 mg PO QAM #90 caps 10/27/23 11/29/23 Rx ondansetron HCl 4 mg tablet 4 mg PO Q6H PRN nausea and 11/24/23 11/29/23 Rx vomiting 7 days #60 tabs lorazepam 0.5 mg tablet 0.5 mg PO QID PRN anxiety #120 tabs 11/29/23 11/29/23 Rx Patient History Medical History Dilated pancreatic duct Chronic cough Hypercholesteremia Chronic low back pain Chronic constipation SOBOE (shortness of breath on exertion) IPMN (intraductal papillary mucinous neoplasm) Hx of chronic respiratory failure Fecal occult blood test positive (06/21/23) Generalized weakness Hx of chest pain pt denies having chest pain or heart attack in the past Abdominal pain "comes and goes" with bloating and acid reflux symptoms. Chronic bronchitis Chronic pancreatitis per record, including record of Intraductal Papillary mucinous neoplasm - pt denies have any problems with her pancreas. Hx of supraventricular tachycardia per chart - pt unsure of details, thinks it is controlled w/ diltiazem, does not follow w/ cardio Chronic nausea Osteoporosis Osteoarthritis Insomnia Chronic fatigue Iron deficiency anemia Hypothyroidism Depression Anxiety Hyperlipidemia Hypertension History of pneumonia 03/2023. treated inpatient in 04/2023 at [facility] for respiratory failure. discharged home on 2lpm of oxygen continuously. On home oxygen therapy 2lpm via n/c continuously. Chronic obstructive pulmonary disease Surgical History History of esophagogastroduodenoscopy (EGD) (2021) History of colonoscopy (2021) History of tonsillectomy and adenoidectomy H/O breast biopsy benign Family History Mother Myocardial infarction Father Cancer Other No family history of adverse response to anesthesia Social History Smoking Status: Former smoker Tobacco Type: Cigarettes Age Started Using Tobacco: 22; Age Quit Using Tobacco: 82; packs per day: 0.75; Second Hand Exposure: No; Do You Dip or Chew Tobacco: No; Tobacco Cessation Education Requested by Patient: No Hx Alcohol Use: No Hx Substance Use: No Preferred Language: Malay Communication Ability: Effective 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 All else were negative. Physical Exam Physical Exam: VITAL SIGNS Vital signs and nursing notes were reviewed. GENERAL 83-year-old female appearing her stated age who is in no acute distress. Communicates well with provider and answers questions appropriately. SKIN Without rashes or lesions. NOSE Midline and without cyanosis. MOUTH/OROPHARYNX Without perioral cyanosis. NECK Neck with FROM. LUNGS Chest wall evaluation demonstrates increased chest wall A:P diameter. Auscultation reveals delayed air entry without wheezes, rales, or rhonchi appreciated. CARDIAC RRR with S1/S2. No murmur, rubs, or gallops appreciated. ABDOMEN Abdominal inspection demonstrates a scaphoid abdomen. BS normoactive all four quadrants. No tenderness, palpable masses, or ascites noted. EXTREMITIES Nail clubbing not present. No peripheral cyanosis. No pretibial edema present. +3/5 radial palpated throughout. PSYCH A&Ox3 and cooperates fully with examiner. Pt is very pleasant and interacts well with examiner. Results & Data Results & Data Vital Signs (Past 12 Hours) Vital Signs Temp Pulse Pulse Resp BP Pulse Ox O2 Del Method 11/30/23 12:48 86 20 98 Nasal Cannula 11/30/23 10:06 Nasal Cannula 11/30/23 07:47 36.6 C 82 16 183/78 H 96 Nasal Cannula 11/30/23 07:47 64 20 97 Nasal Cannula O2 Flow Rate 11/30/23 12:48 2 11/30/23 10:06 2 11/30/23 07:47 2 11/30/23 07:47 2 PG Care Time/CCT Total # of Minutes Spent Total Time Spent with Patient: Total time spent is greater than 50% in coordination of care (as documented) at patient's floor/unit and/or counseling patient: Coding Level of Care Code 69975 INT INP/OBS CARE 2/55MIN Diagnoses Acute on chronic hypoxic respiratory failure J96.21 COPD with emphysema J43.9 Productive cough R05.8
[2023-11-30] MEDS: POLYETHYLENE (MIRALAX) 17 GM PACK PO PRN (15:04)
[2023-11-30 16:57] LABS: D Dimer 320 ug/L FEU (0-500)
[2023-11-30] MEDS: SODIUM CHLOR 7% 4 ML NEB NEB SCH (19:42)
[2023-11-30] MEDS: SENNA 8.6 MG TAB PO PRN (20:46)
--- NOTE | 2023-12-01 10:30 | Pulmonology Progress Note ---
Date of Service December 01, 2023 Assessment & Plan (1) Acute on chronic hypoxic respiratory failure: Plan: Certainly could be seen in the setting of COPD exacerbation alone. Reviewing admission documentation shows that the patient had labored breathing with a ssociated accessory muscle use, cough, tachypnea, and associated wheezing. She was aggressively managed with steroids and nebulizers including nebulized Perforomist and budesonide. She is not bronchospastic on exam again today. Would recommend outpatient course of steroids and completion of azithromycin as well. We will see the patient in the office in the next 2 to 4 weeks in follow- up. Given her current exacerbation and patient's underlying pulmonary disease process, I would push the patient surgery back until she is evaluated in the outpatient setting and at least back to her baseline. She can continue with her pulmonary rehab as tolerated as well. (2) COPD with emphysema: Plan: Previously on Breztri at home. Would recommend that the patient be provided a spacer while inpatient to use with her Breztri inhaler. Currently though, would continue with budesonide and Perforomist as well as as needed DuoNebs for t herapy. Patient could be considered for Ohtuvayre pending this workup. Unfortunately, in reviewing her images and pulmonary function testing, the patient does have advanced, end-stage COPD with severe emphysematous lung changes. Additionally, her diffusion capacity is significantly reduced which is likely driving her symptoms as well. She did have a slight degree of CO2 retention on VBG upon arrival, however this is relatively mild and at this point I do not feel that further evaluation for PAP therapy is warranted on this admission. (3) Productive cough: Plan: Patient with difficulty clearing her secretions. She did not tolerate hypertonic saline. Continue Mucinex and flutter valve at home. Plan Thank you for allowing us to participate in the care of this pleasant patient. Pulmonary medicine will sign off at this time. Admission and Anticipated Discharge Date Admission Date: November 29, 2023 Subjective Patient seen and evaluated bedside. She did not tolerate hypertonic saline well. She has not had much by the way of sputum output. She is back at her baseline supplemental oxygen requirement. Review of Systems Review of Systems: A complete 10 point review of systems was reviewed with the patient with pertinent positives and negatives as per history of present illness. All else were negative. Physical Exam Physical Exam: VITAL SIGNS Vital signs and nursing notes were reviewed. GENERAL 83-year-old female appearing her stated age who is in no acute distress. Communicates well with provider and answers questions appropriately. SKIN Without rashes or lesions. NOSE Midline and without cyanosis. MOUTH/OROPHARYNX Without perioral cyanosis. NECK Neck with FROM. LUNGS Chest wall evaluation demonstrates increased chest wall A:P diameter. Auscultation reveals delayed air entry without wheezes, rales, or rhonchi appreciated. CARDIAC RRR with S1/S2. No murmur, rubs, or gallops appreciated. ABDOMEN Abdominal inspection demonstrates a scaphoid abdomen. BS normoactive all four quadrants. No tenderness, palpable masses, or ascites noted. EXTREMITIES Nail clubbing not present. No peripheral cyanosis. No pretibial edema present. +3/5 radial palpated throughout. PSYCH A&Ox3 and cooperates fully with examiner. Pt is very pleasant and interacts well with examiner. Results & Data Results & Data Vital Signs (Past 12 Hours) Vital Signs Temp Pulse Resp BP Pulse Ox O2 Del Method O2 Flow Rate 12/01/23 08:00 Nasal Cannula 2 12/01/23 08:00 36.7 C 78 20 164/64 H 97 Nasal Cannula 3 12/01/23 07:52 70 15 97 Nasal Cannula 3 PG Care Time/CCT Total # of Minutes Spent Total Time Spent with Patient: Total time spent is greater than 50% in coordination of care (as documented) at patient's floor/unit and/or counseling patient: Coding Level of Care Code 99474 SUB INP/OBS CARE 2/35MIN Diagnoses Acute on chronic hypoxic respiratory failure J96.21 COPD with emphysema J43.9 Productive cough R05.8
--- NOTE | 2023-12-01 11:51 | Hospitalist Progress Note ---
Date of Service December 01, 2023 Assessment & Plan (1) COPD exacerbation: Plan: Admitted with Worsening cough and shortness of breath on exertion with significant hypoxia on exertion Cepheid PCR negative Solu-Medrol 125mg IV given in the ER, continue 40mg IV daily Duonebs q4h Formoterol/budesonide Nebs BID Azithromycin 500mg PO daily for 3 days Although she feels a lot better today, she states she is not ready for surgery. Therefore surgery has been canceled (she was scheduled for an outpatient elective cholecystectomy) (2) Acute respiratory failure with hypoxia and hypercapnia: Plan: Baseline 2LPM O2 Requiring BiPAP initially in the ER but now back on baseline O2 but still with significant exertional even conversational hypoxia Aim O2 sats 88-92% even if this is less than her usual 2 LPM O2 (3) Right upper quadrant abdominal pain: Plan: Reportedly plans for cholecystectomy on after seeing her general surg kayden. Recommend discussing with anesthesia when they wish to perform this after her COPD exacerbation. Low fat diet (4) Underweight: Plan: Looks thin and underweight Add nutritional supplements Plan Hypothyroidism - continue levothyroxine GERD - continue famotidine HTN - continue diltiazem VTE prophylaxis - heparin 5000 units SQ BID Diet - low fat Disposition - observation to med/surg Admission and Anticipated Discharge Date Admission Date: November 29, 2023 Subjective patient seen and examined, says her breathing is better, appears a lot more comf ortable today Review of Systems Review of Systems: All systems reviewed are negative, apart from the ones contained in the history. Physical Exam Physical Exam: The patient is awake, alert and oriented 3, well developed and well nourished, normocephalic and atraumatic, lying in bed and in no acute distress. HEENT--PERRL, EOMI, mucous membranes and oropharynx mildly dry Neck--supple. No JVD. No bruits. Thyroid normal, trachea midline, no adenopathy. Heart--normal S1 and S2. No murmurs, rubs or gallops. Lungs--clear bilaterally, no respiratory distress, no accessory muscle use. Abdomen--normal bowel sounds and soft. Extremities--no cyanosis or clubbing. No edema. Dermatologic--normal skin turgor, normal color, no abnormal lymph nodes, no rash. Neurologic--cranial nerves II through XII grossly intact. Rheumatologic--normal range of motion. Psychiatric--normal affect. Results & Data Results & Data Vital Signs (Past 12 Hours) Vital Signs Temp Pulse Resp BP Pulse Ox O2 Del Method O2 Flow Rate 12/01/23 08:00 Nasal Cannula 2 12/01/23 08:00 98.1 F 78 20 164/64 H 97 Nasal Cannula 3 12/01/23 07:52 70 15 97 Nasal Cannula 3 PG Care Time/CCT Total # of Minutes Spent Total Time Spent with Patient: Total time spent is greater than 50% in coordination of care (as documented) at patient's floor/unit and/or counseling patient: Coding Level of Care Code 42020 SUB INP/OBS CARE 2/35MIN Diagnoses COPD exacerbation J44.1 Acute respiratory failure with hypoxia and hypercapnia J96.01; J96.02 Right upper quadrant abdominal pain R10.11 Underweight R63.6 Time Spent (min) 35
[2023-12-01] MEDS: bisacodyL 10 MG SUPP PR STA (15:35)
[2023-12-01] MEDS: SOD PHOSPHATE/SOD BIPHOSPHATE ENEMA 132 ML BTL PR PRN (19:55)
[2023-12-02 06:31] LABS: Hematocrit (blood only) 34.7 % (37.0-47.0); Hemoglobin 11.5 g/dl (12.0-16.0); Mean Corpuscular Hemoglobin 28.3 pg (25.0-34.0); Mean Corpuscular Hgb Conc 33.1 g/dL (32.0-36.0); Mean Corpuscular Volume 85.5 fL (80.0-100.0); Mean Platelet Volume 8.1 fL (9.4-12.4); Platelet Count 400 K/uL (130-400); RDW Coefficient of Variation 12.7 % (11.5-14.5); RDW Standard Deviation 39.8 fL (36.4-46.3); Red Blood Count 4.06 M/uL (4.20-5.40); White Blood Count 9.72 K/ul (4.8-10.8)
--- NOTE | 2023-12-02 06:33 | Electrocardiogram Report ---
Test Reason : Blood Pressure : */* mmHG Vent. Rate : 71 BPM Atrial Rate : 71 BPM P-R Int : 144 ms QRS Dur : 74 ms QT Int : 416 ms P-R-T Axes : 88 85 80 degrees QTcB Int : 452 ms Normal sinus rhythm Normal ECG No previous ECGs available Confirmed by Abdulkadir Gomez ([id number]) on 12/02/2023 6:32:36 AM Referred By: REFERRED SELF Confirmed By: Abdulkadir Gomez
[2023-12-02 06:38] LABS: BUN Creatinine Ratio 32.9 (10-20); Calcium 9.4 mg/dl (8.6-10.3); Creatinine Clr Calc Pharmacy 35.5 ml/min; Est GFR (African American) 89.5 ml/min; Est GFR (Non-African American) 77.2 ml/min; Potassium 4.2 mmol/L (3.5-5.1)
[2023-12-02 07:25] VITALS: RESP 16; TEMP 97.3
--- NOTE | 2023-12-02 11:02 | Discharge Summary ---
Date of Service December 02, 2023 Admission HPI Per Admitting Provider Inés Tavarez is an 83-year-old female with COPD who presents to the ER with shortness of breath on exertion for approximately one week. She has a nonproductive cough but feels there is much to cough up but struggling to do so. In the ER after BiPAP, duoneb and Solu-medrol she is back on her baseline oxygen but drops to mid 80s even with full sentences. She reports this feels like her previous COPD exacerbations. Baseline 2 L/min O2 chronically. She has been putting off coming to the emergency room all week as she did not want to miss her surgery appointment which she had earlier today with plans for cholecys tectomy due to abdominal pain which has been ongoing intermittently but more frequent episodes since February 2023. She notes this abdominal pain can happen at any time. She has had EGD, colonoscopy, CTs, HIDA scan, MRI without definitive explanation for her pain. She notably does have chronic pancreatitis changes on her CT. This abdominal pain can happen at any time but is more more every day without rhyme or reason, she feels she bloats up and has cramping abdominal pain. Associated nausea and vomiting. The abdominal pain is more on the right side but could also be generalized at times. She reports taking MiraLAX as she gets constipated. She is not currently having abdominal pain when seen in the emergency room. Admission Exam (Per Admitting) Constitutional The patient is awake, alert and oriented 3, well developed and well nourished, normocephalic and atraumatic, lying in bed and in no acute distress. HEENT--PERRL, EOMI, mucous membranes and oropharynx mildly dry Neck--supple. No JVD. No bruits. Thyroid normal, trachea midline, no adenopathy. Heart--normal S1 and S2. No murmurs, rubs or gallops. Lungs--clear bilaterally, no respiratory distress, no accessory muscle use. Abdomen--normal bowel sounds and soft. Extremities--no cyanosis or clubbing. No edema. Dermatologic--normal skin turgor, normal color, no abnormal lymph nodes, no rash. Neurologic--cranial nerves II through XII grossly intact. Rheumatologic--normal range of motion. Psychiatric--normal affect. Discharge Data Consultations 11/29/23 16:51 ED Decision to Admit Stat 11/30/23 11:36 Consult Pulmonology Routine 12/01/23 10:10 Consult Anesthesiology Routine Hospital Course (1) COPD exacerbation: Admitted with Worsening cough and shortness of breath on exertion with significant hypoxia on exertion Cepheid PCR negative Solu-Medrol 125mg IV given in the ER, continue 40mg IV daily Duonebs q4h Formoterol/budesonide Nebs BID Azithromycin 500mg PO daily for 5 days Feels a lot better today and wishes to be discharged (2) Acute respiratory failure with hypoxia and hypercapnia: Baseline 2LPM O2 Requiring BiPAP initially in the ER but now back on baseline O2 but still with significant exertional even conversational hypoxia Aim O2 sats 88-92% even if this is less than her usual 2 LPM O2 (3) Right upper quadrant abdominal pain: Reportedly plans for cholecystectomy on after seeing her general surgeon. Recommend discussing with anesthesia when they wish to perform this after her COPD exacerbation. Low fat diet (4) Underweight: Looks thin and underweight Add nutritional supplements Plan Hypothyroidism - continue levothyroxine GERD - continue famotidine HTN - continue diltiazem VTE prophylaxis - heparin 5000 units SQ BID Diet - low fat Disposition - observation to med/surg Coding Level of Care Code 42840 INP/OBS DISCH >30 MIN Diagnoses COPD exacerbation J44.1 Acute respiratory failure with hypoxia and hypercapnia J96.01; J96.02 Right upper quadrant abdominal pain R10.11 Underweight R63.6 Time Spent (min) 35
[2023-12-02 12:48] VITALS: O2SAT 97
[2023-12-02 13:04] VITALS: BP 153/84; PULSE 64
== END 2023-12-02 14:25 | disposition home or self-care (01) | DRG 190 ==
LOC: EDINP 15:04 → ED 15:04 → SUATTDRO 17:44 → 3E 11-30 01:15

== ENCOUNTER 2024-07-19 16:20 | Inpatient (IN) ==
[2024-07-19 17:15] LABS: Basophils # (auto) 0.04 K/uL (0.00-0.20); Basophils % (auto) 0.4 %; Eosinophils # (auto) 0.08 K/uL (0.00-0.50); Eosinophils % (auto) 0.9 %; Hematocrit (blood only) 37.8 % (37.0-47.0); Hemoglobin 12.3 g/dl (12.0-16.0); Immature Granulocytes # (auto) 0.01 K/uL (0.01-0.20); Immature Granulocytes % (auto) 0.1 %; Lymphocytes # (auto) 1.58 K/uL (1.20-3.40); Mean Corpuscular Hemoglobin 28.3 pg (25.0-34.0); Mean Corpuscular Hgb Conc 32.5 g/dL (32.0-36.0); Mean Corpuscular Volume 87.1 fL (80.0-100.0); Mean Platelet Volume 8.2 fL (9.4-12.4); Monocytes # (auto) 0.56 K/uL (0.11-0.59); Neutrophils # (auto) 7.01 K/uL (1.40-6.50); Neutrophils % (auto) 75.6 %; Platelet Count 307 K/uL (130-400); RDW Standard Deviation 41.1 fL (36.4-46.3); Red Blood Count 4.34 M/uL (4.20-5.40); White Blood Count 9.28 K/ul (4.8-10.8)
[2024-07-19 17:35] LABS: Albumin Globulin Ratio 1.6 (0.9-2); Albumin Level 4.7 gm/dl (3.4-5.0); BUN Creatinine Ratio 11.4 (10-20); Bilirubin,Total 0.5 mg/dl (0.2-1.0); Calcium 9.5 mg/dl (8.6-10.3); Creatinine Clr Calc Pharmacy 38.3 ml/min; Potassium 3.9 mmol/L (3.5-5.1); Total Protein 7.7 gm/dl (6.0-8.3)
--- NOTE | 2024-07-19 18:03 | XRay Report ---
INDICATION: Chest pain. TECHNIQUE: Frontal radiograph of the chest. COMPARISON: Radiograph 12/17/2023. FINDINGS: The cardiomediastinal silhouette and pulmonary vasculature appear within normal limits. Lungs appear hyperinflated with flattening of the diaphragms likely related to COPD. No infiltrate, pleural effusion or pneumothorax. No acute osseous abnormality evident. IMPRESSION: No acute cardiopulmonary process. Findings likely related to COPD. Electronically signed by Kash Asencio 07-19-2024 6:03 PM
[2024-07-19 18:14] LABS: Appearance Urine Clear (Clear); Bilirubin Urine Negative (Negative); Blood Urine Negative (Negative); Color Urine Yellow; Glucose Urine UA Negative (Negative); Ketones Urine Negative (Negative); Leukocyte Esterase Urine Negative (Negative); Nitrite Urine Negative (Negative); Protein Urine Negative (Negative); Specific Gravity Urine 1.003 (1.000-1.030); Urobilinogen Urine Negative (Negative)
[2024-07-19 18:42] LABS: Base Excess VBG 4.9 mEq/L; HCO3 VBG 31 mmol/L; Oxygen Saturation VBG < 60.0 %; PCO2 VBG 53 mmHg (38-50); PO2 VBG 28 mmHg; pH VBG 7.38 (7.36-7.41)
[2024-07-19 19:14] LABS: Troponin I High Sensitivity 5.1 pg/ml (0-14)
[2024-07-19 19:33] LABS: Influenza A virus by PCR Negative (Neg); Influenza B virus by PCR Negative (Neg); RSV by PCR Negative (Neg); SARS CoV2 RNA(COVID-19) Ceph NEGATIVE (Negative)
[2024-07-19 19:44] LABS: Magnesium 2.1 mg/dl (1.7-2.4)
[2024-07-19] MEDS: OPTIRAY 320 125ml IV ONE (19:51)
--- NOTE | 2024-07-19 22:38 | CT Scan Report ---
Exam(s): CT ABDOMEN + PELVIS With Contrast IV Amt: 90 ml opti 320 EXAM: CT Abdomen and Pelvis With Intravenous Contrast CLINICAL HISTORY: Reason for exam: abd pain. TECHNIQUE: Axial computed tomography images of the abdomen and pelvis with intravenous contrast. CTDI is 27.97 mGy and DLP is 476.66 mGy-cm. Automated exposure control was utilized for the study. A dose lowering technique was utilized adhering to the principles of ALARA. CONTRAST: Patient received 90 ml opti 320 of IV contrast COMPARISON: No relevant prior studies available. FINDINGS: ABDOMEN: Liver: Unremarkable. No mass. Gallbladder and bile ducts: Cholecystectomy. No ductal dilation. Pancreas: Unremarkable. No mass. No ductal dilation. Spleen: Unremarkable. No splenomegaly. Adrenals: Unremarkable. No mass. Kidneys and ureters: Unremarkable. No solid mass. No hydronephrosis. Stomach and bowel: Diverticulosis without diverticulitis.. No obstruction. No mucosal thickening. PELVIS: Appendix: No findings to suggest acute appendicitis. Bladder: Unremarkable. No mass. ABDOMEN and PELVIS: Intraperitoneal space: Unremarkable. No free air. No significant fluid collection. Bones/joints: No acute findings. Soft tissues: Unremarkable. Vasculature: Unremarkable. No abdominal aortic aneurysm. Lymph nodes: Unremarkable. No enlarged lymph nodes. IMPRESSION: No acute findings in the abdomen or pelvis. Electronically signed by: Yves Quinn MD 07/19/24 22:37 PM
--- NOTE | 2024-07-19 23:02 | CT Scan Report ---
Exam(s): CTA CHEST IV Amt: 90 ml opti 320 EXAM: CT Angiography Chest With Intravenous Contrast CLINICAL HISTORY: Reason for exam: ro pe. TECHNIQUE: Axial computed tomographic angiography images of the chest with intravenous contrast. CTDI is 27.97 mGy and DLP is 476.66 mGy-cm. Automated exposure control was utilized for the study. A dose lowering technique was utilized adhering to the principles of ALARA. MIP reconstructed images were created and reviewed. COMPARISON: No relevant prior studies available. FINDINGS: Pulmonary arteries: Unremarkable. No pulmonary embolism. Aorta: No acute findings. No thoracic aortic aneurysm. Lungs: Emphysematous changes. No acute pulmonary infiltration. No pulmonary mass. Pleural space: Unremarkable. No significant effusion. No pneumothorax. Heart: Unremarkable. No cardiomegaly. No significant pericardial effusion. No evidence of RV dysfunction. Bones/joints: No acute fracture. No dislocation. Soft tissues: Unremarkable. Lymph nodes: Unremarkable. No enlarged lymph nodes. IMPRESSION: No evidence of pulmonary emboli or acute cardiopulmonary process. Electronically signed by: Yves Quinn MD 07/19/24 23:01 PM
--- NOTE | 2024-07-20 00:36 | Emergency Department Note ---
History of Present Illness General Chief complaint: Illness Stated complaint: STOMACH AND LUNG ISSUES Time Seen by Provider: 07/19/24 17:53 Source: patient and family History of Present Illness Provider complaint: Illness Maximum Pain Intensity: 6 83-year-old female presents emergency department with daughter for illness. Patient reports she has been having abdominal pain and constipation issues for many months status post a cholecystectomy in November 2023. Today she reports worsening pain that was in her flank and abdomen. She reports constipation. She reports nausea. She also reports shortness of breath. No falls or trauma. Daughter reports they have been trying to do "natural remedies" specifically taking gavi for her symptoms. Home Medications Medication Instructions Recorded Confirmed Type Oxygen humidifier for concentrator #1 ea 03/29/23 07/04/24 Rx nebulizers #1 ea 04/09/23 07/04/24 Rx cholecalciferol (vitamin D3) 25 1,000 unit PO QAM 07/27/23 07/19/24 History mcg (1,000 unit) capsule (Vitamin D3) cyanocobalamin (vitamin B-12) 1,000 mcg PO QAM 07/27/23 07/19/24 History 1,000 mcg capsule diltiazem HCl 120 mg capsule,24 120 mg PO QAM #90 caps 09/17/23 07/19/24 Rx hr,extended release hyoscyamine sulfate 0.125 mg 0.125 mg sublingual BID PRN 10/11/23 07/19/24 Rx sublingual tablet abdominal pain #60 tabs Wheeled Walker #1 ea 12/07/23 07/04/24 Rx fluoxetine 20 mg capsule 20 mg PO DAILY #30 caps 02/02/24 07/19/24 Rx THC gummy 1 gummy PO DAILY PRN pain #30 ea 02/15/24 07/19/24 Rx Portable Oxygen #1 ea 04/11/24 07/04/24 Rx budesonide 160 mcg-glycopyr 9 2 inh inhalation BID #10.7 grams 04/11/24 07/19/24 Rx mcg-formot 4.8 mcg/actuation HFA inhaler (Breztri Aerosphere) guaifenesin 600 mg tablet, 1,200 mg (2 x 600 mg) PO BID PRN 04/11/24 07/19/24 Rx extended release 12 hr (Mucinex) Congestion #120 tabs ipratropium 0.5 mg-albuterol 3 mg 3 ml inhalation Q4H PRN wheezing 04/11/24 07/19/24 Rx (2.5 mg base)/3 mL nebulization #180 mL soln sodium chloride 3 % for 4 ml inhalation BID PRN secretions 04/11/24 07/19/24 Rx nebulization #750 mL ipratropium 20 mcg-albuterol 100 1 puff inhalation QID PRN 04/19/24 07/19/24 Rx mcg/actuation mist for inhalation shortness of breath or wheezing #4 (Combivent Respimat) grams omeprazole 20 mg tablet,delayed 20 mg PO QAM #30 tabs 04/21/24 07/19/24 Rx release hydroxyzine HCl 10 mg tablet 10 mg PO TID PRN anxiousness #90 05/08/24 07/19/24 Rx tabs ensifentrine 3 mg/2.5 mL 3 mg (2.5 mL) inhalation BID #150 06/29/24 07/19/24 Rx suspension for nebulization mL (Ohtuvayre) ondansetron HCl 4 mg tablet 4 mg PO Q6H PRN nausea and 07/12/24 07/19/24 Rx vomiting 7 days #60 tabs levothyroxine 25 mcg tablet 25 mcg PO DAILYBB 07/19/24 07/19/24 History lorazepam 0.5 mg tablet 0.5 mg PO QID PRN anxiety #120 tabs 07/19/24 07/19/24 Rx mirtazapine 30 mg tablet 30 mg PO HS 07/19/24 07/19/24 History Allergies Allergy/AdvReac Type Severity Reaction Status Date / Time nickel Allergy Intermediate cheap Verified 07/19/24 18:43 jewelry - skin irritation levofloxacin [From Levaquin] Allergy Unknown Unknown Verified 07/19/24 18:43 simvastatin [From Zocor] Allergy Unknown Unknown Verified 07/19/24 18:43 aspirin AdvReac Intermediate stomach Verified 07/19/24 18:43 burning (on an empty stomach) ondansetron [From Zofran] AdvReac Intermediate tremor - Verified 07/19/24 18:43 takes Rx sparingly Past Med/Surg History Problem List (Updated 07/20/24 @ 00:39 by Tera Munoz MD) Elevated lipase (Acute) Blood loss anemia Status post cholecystectomy Abdominal pain Abnormal chest x-ray Productive cough Underweight Chronic obstructive pulmonary disease (Acute) Weight loss, non-intentional Pulmonary infiltrate Ambulatory dysfunction Hyponatremia Iron deficiency anemia Blood in stool Nausea Dilated pancreatic duct Chronic pancreatitis (Acute) IPMN (intraductal papillary mucinous neoplasm) Insomnia Chronic respiratory failure with hypoxia COPD with emphysema Hypothyroidism Abnormal weight loss Chronic constipation Abnormality of pancreatic duct Abdominal pain intermittent Dyspnea Intermittent palpitations Hand pain Abnormal thyroid blood test (Acute) Allergic rhinitis (Acute) Chronic low back pain (Acute) Depression (Acute) Fatigue (Acute) Generalized anxiety disorder (Acute) Hyperlipidemia (Acute) Osteoporosis (Acute) Tobacco use (Acute) Vitamin D deficiency (Acute) Medical History SVT (supraventricular tachycardia) Hyperparathyroidism Tingling of both feet bilaterally - present x years- stable COPD with emphysema - admitted with COPD exacerbation 11/29/23 - f/u loreto rebollar and dr. [place] - patient feels breathing at baseline Dilated pancreatic duct Chronic constipation SOBOE (shortness of breath on exertion) chronic and stable per patient IPMN (intraductal papillary mucinous neoplasm) Hx of chronic respiratory failure - on continuous oxygen 2-4lpm Fecal occult blood test positive (06/21/23) hx-had colonoscopy 09/2023, no findings Generalized weakness Abdominal pain "comes and goes" with bloating and acid reflux symptoms. Chronic bronchitis Chronic pancreatitis per record, including record of Intraductal Papillary mucinous neoplasm - pt denies have any problems with her pancreas. Hx of supraventricular tachycardia per chart - pt unsure of details, thinks it is controlled w/ diltiazem, does not follow w/ cardio Osteoporosis Osteoarthritis Insomnia Chronic fatigue Iron deficiency anemia hx Hypothyroidism Depression Anxiety Hyperlipidemia Hypertension hx History of pneumonia 03/2023. treated inpatient in 04/2023 at [facility] for respiratory failure. discharged home on 2lpm of oxygen continuously at rest, 4L w/activity On home oxygen therapy 2-4 lpm via n/c continuously. Surgical History Hx laparoscopic cholecystectomy (12/30/23) Diagnostic Laparoscopy, Laparoscopic Cholecystectomy(Not Applicable) - Jarad Cao, DO History of esophagogastroduodenoscopy (EGD) most recent spring 2023 History of colonoscopy most recent 09/2023 History of tonsillectomy and adenoidectomy H/O breast biopsy benign Family History Mother Myocardial infarction Father Cancer Other No family history of adverse response to anesthesia Social History Smoking Status: Never smoker Tobacco Type: Cigarettes Age Started Using Tobacco: 22; Age Quit Using Tobacco: 82; packs per day: 0.75; Second Hand Exposure: Yes (hx growing up); Do You Dip or Chew Tobacco: No; Hx Alcohol Use: Yes (none for at least 3 years and very minimal when she did) Hx Substance Use: No Preferred Language: Turkmen Communication Ability: Effective Therapy Teacher Required: No Beliefs That Will Affect Care: None marital status: Current Living Situation: Spouse current occupational status: unemployed Feels Safe at Home: Yes Dental Care, Regularly: No Physical Activity Frequency: Does not Exercise Seatbelt Use: always Sunscreen Use: Yes Assistive Devices: Glasses, Oxygen - Continuous and Walker Physical Exam Vital Signs Vital Signs - 24 hr 07/19/24 16:21 07/19/24 16:44 07/19/24 17:49 Temperature 36.5 C Temperature Source Temporal Artery Scan Pulse Rate 66 56 L Pulse Rate [Right] 58 L Pulse Rate from SpO2 Sensor Pulse Rhythm [Right] Pulse Strength [Right] Respiratory Rate 24 18 Respiratory Effort / Characteristics Non-Labored Respiratory Depth Normal Respiratory Pattern Regular Blood Pressure 130/64 Blood Pressure [Left Arm] 141/58 H Blood Pressure Mean 86 Blood Pressure Mean [Left Arm] 85 Blood Pressure Position [Left Arm] Pulse Oximetry 98 98 Oxygen Delivery Method Nasal Cannula Nasal Cannula Oxygen Flow Rate 2 2 Sepsis Recent Fever Within 48 Hours No Sepsis New/Unexplained Change in Mental Status N/A Sepsis Action Taken by Nursing No Action Required 07/19/24 18:00 07/19/24 18:03 07/19/24 18:21 Temperature Temperature Source Pulse Rate 61 59 L Pulse Rate [Right] Pulse Rate from SpO2 Sensor 58 L 58 L Pulse Rhythm [Right] Pulse Strength [Right] Respiratory Rate 26 H 16 Respiratory Effort / Characteristics Respiratory Depth Respiratory Pattern Blood Pressure 158/71 H Blood Pressure [Left Arm] Blood Pressure Mean 125 Blood Pressure Mean [Left Arm] Blood Pressure Position [Left Arm] Pulse Oximetry 100 98 Oxygen Delivery Method Oxygen Flow Rate Sepsis Recent Fever Within 48 Hours Sepsis New/Unexplained Change in Mental Status Sepsis Action Taken by Nursing 07/19/24 18:27 07/19/24 18:30 07/19/24 18:33 Temperature Temperature Source Pulse Rate 61 59 L Pulse Rate [Right] Pulse Rate from SpO2 Sensor 61 59 L Pulse Rhythm [Right] Pulse Strength [Right] Respiratory Rate 18 16 Respiratory Effort / Characteristics Respiratory Depth Respiratory Pattern Blood Pressure 146/62 H Blood Pressure [Left Arm] Blood Pressure Mean 91 Blood Pressure Mean [Left Arm] Blood Pressure Position [Left Arm] Pulse Oximetry 99 98 Oxygen Delivery Method Oxygen Flow Rate Sepsis Recent Fever Within 48 Hours Sepsis New/Unexplained Change in Mental Status Sepsis Action Taken by Nursing 07/19/24 18:45 07/19/24 18:51 07/19/24 18:57 Temperature Temperature Source Pulse Rate 58 L 61 59 L Pulse Rate [Right] Pulse Rate from SpO2 Sensor 57 L 60 58 L Pulse Rhythm [Right] Pulse Strength [Right] Respiratory Rate 13 23 29 H Respiratory Effort / Characteristics Respiratory Depth Respiratory Pattern Blood Pressure Blood Pressure [Left Arm] Blood Pressure Mean Blood Pressure Mean [Left Arm] Blood Pressure Position [Left Arm] Pulse Oximetry 98 99 98 Oxygen Delivery Method Oxygen Flow Rate Sepsis Recent Fever Within 48 Hours Sepsis New/Unexplained Change in Mental Status Sepsis Action Taken by Nursing 07/19/24 19:00 07/19/24 19:06 07/19/24 19:39 Temperature Temperature Source Pulse Rate 57 L 68 Pulse Rate [Right] Pulse Rate from SpO2 Sensor 57 L 68 Pulse Rhythm [Right] Pulse Strength [Right] Respiratory Rate 29 H 23 Respiratory Effort / Characteristics Respiratory Depth Respiratory Pattern Blood Pressure 142/70 H Blood Pressure [Left Arm] Blood Pressure Mean 95 Blood Pressure Mean [Left Arm] Blood Pressure Position [Left Arm] Pulse Oximetry 98 97 Oxygen Delivery Method Oxygen Flow Rate Sepsis Recent Fever Within 48 Hours Sepsis New/Unexplained Change in Mental Status Sepsis Action Taken by Nursing 07/19/24 20:09 07/19/24 20:12 07/19/24 20:14 Temperature Temperature Source Pulse Rate 73 64 Pulse Rate [Right] Pulse Rate from SpO2 Sensor 72 65 Pulse Rhythm [Right] Pulse Strength [Right] Respiratory Rate 20 29 H Respiratory Effort / Characteristics Respiratory Depth Respiratory Pattern Blood Pressure 137/58 L Blood Pressure [Left Arm] Blood Pressure Mean 76 Blood Pressure Mean [Left Arm] Blood Pressure Position [Left Arm] Pulse Oximetry 97 97 Oxygen Delivery Method Oxygen Flow Rate Sepsis Recent Fever Within 48 Hours Sepsis New/Unexplained Change in Mental Status Sepsis Action Taken by Nursing 07/19/24 20:14 07/19/24 20:21 07/19/24 20:30 Temperature Temperature Source Pulse Rate 64 Pulse Rate [Right] Pulse Rate from SpO2 Sensor 64 Pulse Rhythm [Right] Pulse Strength [Right] Respiratory Rate 21 Respiratory Effort / Characteristics Respiratory Depth Respiratory Pattern Blood Pressure 137/58 L 142/106 H Blood Pressure [Left Arm] Blood Pressure Mean 76 126 Blood Pressure Mean [Left Arm] Blood Pressure Position [Left Arm] Pulse Oximetry 98 Oxygen Delivery Method Oxygen Flow Rate Sepsis Recent Fever Within 48 Hours Sepsis New/Unexplained Change in Mental Status Sepsis Action Taken by Nursing 07/19/24 20:57 07/19/24 21:00 07/19/24 21:03 Temperature Temperature Source Pulse Rate 62 60 60 Pulse Rate [Right] Pulse Rate from SpO2 Sensor 62 61 60 Pulse Rhythm [Right] Pulse Strength [Right] Respiratory Rate 17 17 17 Respiratory Effort / Characteristics Respiratory Depth Respiratory Pattern Blood Pressure Blood Pressure [Left Arm] Blood Pressure Mean Blood Pressure Mean [Left Arm] Blood Pressure Position [Left Arm] Pulse Oximetry 97 97 97 Oxygen Delivery Method Oxygen Flow Rate Sepsis Recent Fever Within 48 Hours Sepsis New/Unexplained Change in Mental Status Sepsis Action Taken by Nursing 07/19/24 21:15 07/19/24 21:15 07/19/24 21:21 Temperature Temperature Source Pulse Rate 59 L Pulse Rate [Right] Pulse Rate from SpO2 Sensor 59 L Pulse Rhythm [Right] Pulse Strength [Right] Respiratory Rate 20 Respiratory Effort / Characteristics Respiratory Depth Respiratory Pattern Blood Pressure 134/62 134/62 Blood Pressure [Left Arm] Blood Pressure Mean 88 88 Blood Pressure Mean [Left Arm] Blood Pressure Position [Left Arm] Pulse Oximetry 97 Oxygen Delivery Method Oxygen Flow Rate Sepsis Recent Fever Within 48 Hours Sepsis New/Unexplained Change in Mental Status Sepsis Action Taken by Nursing 07/19/24 21:25 07/19/24 21:30 07/19/24 21:42 Temperature Temperature Source Pulse Rate 58 L 60 64 Pulse Rate [Right] Pulse Rate from SpO2 Sensor 59 L 64 Pulse Rhythm [Right] Pulse Strength [Right] Respiratory Rate 22 22 Respiratory Effort / Characteristics Respiratory Depth Respiratory Pattern Blood Pressure Blood Pressure [Left Arm] Blood Pressure Mean Blood Pressure Mean [Left Arm] Blood Pressure Position [Left Arm] Pulse Oximetry 97 96 Oxygen Delivery Method Oxygen Flow Rate Sepsis Recent Fever Within 48 Hours Sepsis New/Unexplained Change in Mental Status Sepsis Action Taken by Nursing 07/19/24 21:57 07/19/24 22:00 07/19/24 22:00 Temperature Temperature Source Pulse Rate 66 Pulse Rate [Right] Pulse Rate from SpO2 Sensor Pulse Rhythm [Right] Pulse Strength [Right] Respiratory Rate 24 Respiratory Effort / Characteristics Respiratory Depth Respiratory Pattern Blood Pressure 149/94 H 149/94 H Blood Pressure [Left Arm] Blood Pressure Mean 121 121 Blood Pressure Mean [Left Arm] Blood Pressure Position [Left Arm] Pulse Oximetry Oxygen Delivery Method Oxygen Flow Rate Sepsis Recent Fever Within 48 Hours Sepsis New/Unexplained Change in Mental Status Sepsis Action Taken by Nursing 07/19/24 22:15 07/19/24 22:33 07/20/24 00:00 Temperature Temperature Source Pulse Rate 62 58 L Pulse Rate [Right] 63 Pulse Rate from SpO2 Sensor 61 58 L Pulse Rhythm [Right] Regular Pulse Strength [Right] Normal Respiratory Rate 17 19 17 Respiratory Effort / Characteristics Non-Labored Spontaneous Respiratory Depth Normal Respiratory Pattern Regular Blood Pressure Blood Pressure [Left Arm] 114/64 Blood Pressure Mean Blood Pressure Mean [Left Arm] 80 Blood Pressure Position [Left Arm] Lying Pulse Oximetry 95 97 95 Oxygen Delivery Method Nasal Cannula Oxygen Flow Rate 2 Sepsis Recent Fever Within 48 Hours Sepsis New/Unexplained Change in Mental Status Sepsis Action Taken by Nursing Physical Exam GENERAL: Cachectic HENT: Exam performed. - Head: Normocephalic and atraumatic. EYES: Conjunctivae and EOM are normal. Right eye exhibits no discharge. Left eye exhibits no discharge. No scleral icterus. NECK: Normal range of motion. Neck supple. No JVD present. CV: Normal rate, regular rhythm, normal heart sounds and intact distal pulses. There is no peripheral edema. Palpable radial pulses bue. PULM/CHEST: Effort normal and breath sounds normal. No respiratory distress. No stridor. no wheezes. no rales. ABD: The abdomen is soft. There is diffuse tenderness to palpation. NEURO: Motor and sensation grossly intact. SKIN: Skin is warm and dry. He is not diaphoretic. PSYCH: normal mood and affect. Behavior is normal. Judgment and thought content normal. Course Course 175: The patient was evaluated in room C1. A complete history and physical exam was performed Cardiac monitoring: An order was placed for continuous cardiac monitoring. The monitor shows a rate of 60 with sinus rhythm interpreted by me 2300: Vital signs stable. Imaging is unremarkable. Labs show lipase of 7583. [facility]. Administered Medications Discontinued Medications Ioversol (Optiray 320 125ml) 115 ml IV ONCE ONE Stop: 07/19/24 19:51 Last Admin: 07/19/24 19:51 Dose: 115 ml Documented By: YANCY Medical Decision Making Laboratory Data Attestation: I reviewed the patient's lab results. 07/19/24 17:01 07/19/24 17:01 Lab Results 07/19/24 07/19/24 07/19/24 Range/Units 17:01 18:31 18:50 WBC 9.28 (4.8-10.8) K/ul RBC 4.34 (4.20-5.40) M/uL Hgb 12.3 (12.0-16.0) g/dl Hct 37.8 (37.0-47.0) % MCV 87.1 (80.0-100.0) fL MCH 28.3 (25.0-34.0) pg MCHC 32.5 (32.0-36.0) g/dL RDW Std Deviation 41.1 (36.4-46.3) fL RDW Coeff of Samy 13.0 (11.5-14.5) % Plt Count 307 (130-400) K/uL MPV 8.2 L (9.4-12.4) fL Immature Gran % (Auto) 0.1 % Neut % (Auto) 75.6 % Lymph % (Auto) 17.0 % Wirt % (Auto) 6.0 % Eos % (Auto) 0.9 % Baso % (Auto) 0.4 % Neut # (Auto) 7.01 H (1.40-6.50) K/uL Lymph # (Auto) 1.58 (1.20-3.40) K/uL Wirt # (Auto) 0.56 (0.11-0.59) K/uL Eos # (Auto) 0.08 (0.00-0.50) K/uL Baso # (Auto) 0.04 (0.00-0.20) K/uL Immature Gran # (Auto) 0.01 (0.01-0.20) K/uL VBG pH 7.38 (7.36-7.41) VBG pCO2 53 H (38-50) mmHg VBG pO2 28 mmHg VBG HCO3 31 mmol/L VBG O2 Saturation < 60.0 % VBG Base Excess 4.9 mEq/L Sodium 134 L (136-145) mmol/L Potassium 3.9 (3.5-5.1) mmol/L Chloride 97 L (98-107) mmol/L Carbon Dioxide 31 (21-32) mmol/L Anion Gap 6 (3-11) BUN 8 (6-23) mg/dl Creatinine 0.70 (0.6-1.2) mg/dl Est Cr Clr Drug Dosing 38.3 ml/min eGFR 86.83 BUN/Creatinine Ratio 11.4 (10-20) Glucose 89 (70-99(Fasting)) mg/dl Calcium 9.5 (8.6-10.3) mg/dl Magnesium 2.1 (1.7-2.4) mg/dl Total Bilirubin 0.5 (0.2-1.0) mg/dl AST 19 (13-39) U/L ALT 10 (7-52) U/L Alkaline Phosphatase 73 (34-104) U/L Troponin I High Sens 5.1 (0-14) pg/ml Total Protein 7.7 (6.0-8.3) gm/dl Albumin 4.7 (3.4-5.0) gm/dl Globulin 3.0 (2.5-4.0) gm/dl Albumin/Globulin Ratio 1.6 (0.9-2) Lipase 7583 H (11-82) U/L Urine Color Urine Appearance (Clear) Urine pH (4.5-7.5) Ur Specific [place] (1.000-1.030) Urine Protein (Negative) Urine Glucose (UA) (Negative) Urine Ketones (Negative) Urine Blood (Negative) Urine Nitrite (Negative) Urine Bilirubin (Negative) Urine Urobilinogen (Negative) Ur Leukocyte Esterase (Negative) Urine Comment SARS-CoV-2 (PCR) NEGATIVE (Negative) Influenza Type A (PCR) Negative (Neg) Influenza Type B (PCR) Negative (Neg) RSV (RT-PCR) Negative (Neg) 07/19/24 Range/Units Unknown WBC (4.8-10.8) K/ul RBC (4.20-5.40) M/uL Hgb (12.0-16.0) g/dl Hct (37.0-47.0) % MCV (80.0-100.0) fL MCH (25.0-34.0) pg MCHC (32.0-36.0) g/dL RDW Std Deviation (36.4-46.3) fL RDW Coeff of Samy (11.5-14.5) % Plt Count (130-400) K/uL MPV (9.4-12.4) fL Immature Gran % (Auto) % Neut % (Auto) % Lymph % (Auto) % Wirt % (Auto) % Eos % (Auto) % Baso % (Auto) % Neut # (Auto) (1.40-6.50) K/uL Lymph # (Auto) (1.20-3.40) K/uL Wirt # (Auto) (0.11-0.59) K/uL Eos # (Auto) (0.00-0.50) K/uL Baso # (Auto) (0.00-0.20) K/uL Immature Gran # (Auto) (0.01-0.20) K/uL VBG pH (7.36-7.41) VBG pCO2 (38-50) mmHg VBG pO2 mmHg VBG HCO3 mmol/L VBG O2 Saturation % VBG Base Excess mEq/L Sodium (136-145) mmol/L Potassium (3.5-5.1) mmol/L Chloride (98-107) mmol/L Carbon Dioxide (21-32) mmol/L Anion Gap (3-11) BUN (6-23) mg/dl Creatinine (0.6-1.2) mg/dl Est Cr Clr Drug Dosing ml/min eGFR BUN/Creatinine Ratio (10-20) Glucose (70-99(Fasting)) mg/dl Calcium (8.6-10.3) mg/dl Magnesium (1.7-2.4) mg/dl Total Bilirubin (0.2-1.0) mg/dl AST (13-39) U/L ALT (7-52) U/L Alkaline Phosphatase (34-104) U/L Troponin I High Sens (0-14) pg/ml Total Protein (6.0-8.3) gm/dl Albumin (3.4-5.0) gm/dl Globulin (2.5-4.0) gm/dl Albumin/Globulin Ratio (0.9-2) Lipase (11-82) U/L Urine Color Yellow Urine Appearance Clear (Clear) Urine pH 8.0 H (4.5-7.5) Ur Specific [place] 1.003 (1.000-1.030) Urine Protein Negative (Negative) Urine Glucose (UA) Negative (Negative) Urine Ketones Negative (Negative) Urine Blood Negative (Negative) Urine Nitrite Negative (Negative) Urine Bilirubin Negative (Negative) Urine Urobilinogen Negative (Negative) Ur Leukocyte Esterase Negative (Negative) Urine Comment SARS-CoV-2 (PCR) (Negative) Influenza Type A (PCR) (Neg) Influenza Type B (PCR) (Neg) RSV (RT-PCR) (Neg) Imaging Data Attestation: I personally reviewed and interpreted this imaging study as follows: My Impression: Chest x-ray negative. Airway clear. No pneumothorax. No consolidation. No cardiomegaly or cephalization.. No free air under the diaphragm. No fractures of the skeletal structures. Radiologist's Impression: Chest X-Ray 07/19/24 16:48 INDICATION: Chest pain. TECHNIQUE: Frontal radiograph of the chest. COMPARISON: Radiograph 12/17/2023. FINDINGS: The cardiomediastinal silhouette and pulmonary vasculature appear within normal limits. Lungs appear hyperinflated with flattening of the diaphragms likely related to COPD. No infiltrate, pleural effusion or pneumothorax. No acute osseous abnormality evident. IMPRESSION: No acute cardiopulmonary process. Findings likely related to COPD. Electronically signed by Kash Asencio 07-19-2024 6:03 PM Abdomen/Pelvis CT 07/19/24 17:54 Exam(s): CT ABDOMEN + PELVIS With Contrast IV Amt: 90 ml opti 320 EXAM: CT Abdomen and Pelvis With Intravenous Contrast CLINICAL HISTORY: Reason for exam: abd pain. TECHNIQUE: Axial computed tomography images of the abdomen and pelvis with intravenous contrast. CTDI is 27.97 mGy and DLP is 476.66 mGy-cm. Automated exposure control was utilized for the study. A dose lowering technique was utilized adhering to the principles of ALARA. CONTRAST: Patient received 90 ml opti 320 of IV contrast COMPARISON: No relevant prior studies available. FINDINGS: ABDOMEN: Liver: Unremarkable. No mass. Gallbladder and bile ducts: Cholecystectomy. No ductal dilation. Pancreas: Unremarkable. No mass. No ductal dilation. Spleen: Unremarkable. No splenomegaly. Adrenals: Unremarkable. No mass. Kidneys and ureters: Unremarkable. No solid mass. No hydronephrosis. Stomach and bowel: Diverticulosis without diverticulitis.. No obstruction. No mucosal thickening. PELVIS: Appendix: No findings to suggest acute appendicitis. Bladder: Unremarkable. No mass. ABDOMEN and PELVIS: Intraperitoneal space: Unremarkable. No free air. No significant fluid collection. Bones/joints: No acute findings. Soft tissues: Unremarkable. Vasculature: Unremarkable. No abdominal aortic aneurysm. Lymph nodes: Unremarkable. No enlarged lymph nodes. IMPRESSION: No acute findings in the abdomen or pelvis. Electronically signed by: Yves Quinn MD 07/19/24 22:37 PM Chest CTA 07/19/24 18:21 Exam(s): CTA CHEST IV Amt: 90 ml opti 320 EXAM: CT Angiography Chest With Intravenous Contrast CLINICAL HISTORY: Reason for exam: ro pe. TECHNIQUE: Axial computed tomographic angiography images of the chest with intravenous contrast. CTDI is 27.97 mGy and DLP is 476.66 mGy-cm. Automated exposure control was utilized for the study. A dose lowering technique was utilized adhering to the principles of ALARA. MIP reconstructed images were created and reviewed. COMPARISON: No relevant prior studies available. FINDINGS: Pulmonary arteries: Unremarkable. No pulmonary embolism. Aorta: No acute findings. No thoracic aortic aneurysm. Lungs: Emphysematous changes. No acute pulmonary infiltration. No pulmonary mass. Pleural space: Unremarkable. No significant effusion. No pneumothorax. Heart: Unremarkable. No cardiomegaly. No significant pericardial effusion. No evidence of RV dysfunction. Bones/joints: No acute fracture. No dislocation. Soft tissues: Unremarkable. Lymph nodes: Unremarkable. No enlarged lymph nodes. IMPRESSION: No evidence of pulmonary emboli or acute cardiopulmonary process. Electronically signed by: Yves Quinn MD 07/19/24 23:01 PM ECG Data Attestation: I personally reviewed and interpreted this ECG as follows: Rate (beats per minute): 59 Rhythm: + sinus bradycardia ECG Intervals/blocks: + Normal QRS, + Normal [place] and + Normal QT-c ECG ST segments: + Normal ST segments [facility] Narrative 1753: The patient was evaluated in room C1. A complete history and physical exam was performed Cardiac monitoring: An order was placed for continuous cardiac monitoring. The monitor shows a rate of 60 with sinus rhythm interpreted by me 2300: Vital signs stable. Imaging is unremarkable. Labs show lipase of 7583. [facility] Impression & Plan Elevated lipase, Chronic pancreatitis Discharge Plan Visit Data Chief Complaint: Illness Stated Complaint: STOMACH AND LUNG ISSUES ED Provider: Tera Munoz Discharge Problem: Elevated lipase, Chronic pancreatitis Patient Disposition: Admitted As Inpatient Condition: Fair Forms Stand Alone Forms: My [facility] Prescriptions Prescriptions: No Action (DME) Oxygen humidifier for concentrator See Rx Instructions .Route .MEDSUPPLY Qty: 1 0RF Rx Instructions: As directed diltiazem HCl 120 mg capsule,extended release 24 hr 120 mg PO QAM Qty: 90 3RF hyoscyamine sulfate 0.125 mg tablet, sublingual 0.125 mg sublingual BID PRN (Reason: abdominal pain) Qty: 60 2RF THC gummy 1 gummy PO DAILY PRN (Reason: pain) Qty: 30 0RF Combivent Respimat 20-100 mcg/actuation mist 1 puff inhalation QID PRN (Reason: shortness of breath or wheezing) Qty: 4 11RF Rx Instructions: space evenly during waking hours hydroxyzine HCl 10 mg tablet 10 mg PO TID PRN (Reason: anxiousness) Qty: 90 3RF Rx Instructions: May cause drowsiness. Ohtuvayre 3 mg/2.5 mL suspension for nebulization 3 mg inhalation BID Qty: 150 5RF Patient Comments: 12/27/23, does not have medication yet ondansetron HCl 4 mg tablet 4 mg PO Q6H PRN (Reason: nausea and vomiting) 7 Days Qty: 60 2RF lorazepam 0.5 mg tablet 0.5 mg PO QID PRN (Reason: anxiety) Qty: 120 0RF (DME) nebulizers Misc See Rx Instructions .Route Qty: 1 0RF Rx Instructions: As directed fluoxetine 20 mg capsule 20 mg PO DAILY Qty: 30 5RF omeprazole 20 mg tablet,delayed release (DR/EC) 20 mg PO QAM Qty: 30 5RF (DME) Wheeled Walker Misc See Rx Instructions .Route Qty: 1 0RF Rx Instructions: Dontrell size, with hand brakes and seat ipratropium-albuterol 0.5 mg-3 mg(2.5 mg base)/3 mL solution for nebulization 3 ml inhalation Q4H PRN (Reason: wheezing) Qty: 180 5RF (DME) Portable Oxygen Misc See Rx Instructions .MEDSUPPLY Qty: 1 0RF Rx Instructions: Oxygen 2 liters continuous at rest and 4 L continuous via nasal cannula on exertion with portable concentrator. ALEXANDRE 99 sodium chloride 3 % solution for nebulization 4 ml inhalation BID PRN (Reason: secretions) Qty: 750 3RF Patient Comments: 12/27/23, does not have medication yet Breztri Aerosphere 160-9-4.8 mcg/actuation HFA aerosol inhaler 2 inh inhalation BID Qty: 10.7 6RF guaifenesin [Mucinex] 600 mg tablet extended release 12hr 1,200 mg PO BID PRN (Reason: Congestion) Qty: 120 2RF cholecalciferol (vitamin D3) [Vitamin D3] 25 mcg (1,000 unit) capsule 1,000 unit PO QAM cyanocobalamin (vitamin B-12) 1,000 mcg capsule 1,000 mcg PO QAM levothyroxine 25 mcg tablet 25 mcg PO DAILYBB Rx Instructions: Take about 30 minutes prior to other medication and food. mirtazapine 30 mg tablet 30 mg PO HS Rx Instructions: for sleep, mood and appetite. Referrals Referrals: Benny Fong MD [Primary Care Provider] -
[2024-07-20] MEDS ORDERED: methylPREDNISolone 125 MG/2 ML VIAL IV STA (01:35)
--- NOTE | 2024-07-20 01:52 | History & Physical Report ---
Date of Service July 20, 2024 Assessment & Plan (1) Acute pancreatitis: (2) Chronic obstructive pulmonary disease: (3) Elevated lipase: (4) Status post cholecystectomy: (5) Abdominal pain: (6) Weight loss, non-intentional: (7) Chronic respiratory failure with hypoxia: (8) Chronic constipation: (9) Depression: (10) Generalized anxiety disorder: (11) SVT (supraventricular tachycardia): (12) Hypothyroidism: (13) Hypertension: Plan 83 year old female with PMHx that includes COPD, HTN, hypothyroidism, chronic constipation, and depression/anxiety presents with acute abdominal pain x1 day: #Acute Pancreatitis: Despite CT A/P with IV contrast that was negative, pt presentation with acute epigastric pain and elevated lipase consistent with acute pancreatitis. Unclear precipitating factor. NPO IV fluids - Start LR @ 100mL/hour Zofran PRN for nausea/vomiting Pain control: IV Tylenol 1g Q8H PRN, PRN Dilaudid available for breakthrough pain - recommend caution d/t risk of exacerbating constipation. Could consider Relistor if requiring large amount of opioids for pain control. Check fasting lipid panel to r/o hypertriglyceridemia #COPD: Current presentation does not overtly appear to be an acute COPD exacerbation, though with significantly diminished air movement on exam, will start IV Solumedrol 20mg daily Continue home inhalers or formulary equivalent Duonebs, saline nebs PRN Mucinex BID Flutter valve #pSVT // HTN: Continue home Diltiazem #Hypothyroidism: Continue home levothyroxine #Chronic constipation: Hold home Miralax - substitute with daily Senna, PRN Dulcolax suppository #Anxiety // #Depression: Patient on chronic Ativan 2mg/day distributed PRN across the day - continue PRN while inpatient, caution for oversedation if also requiring opioid analgesics Continue home Mirtazapine #FTT // #Protein calorie malnutrition: BMI 16.9 - instrumentation technologist consulted, appreciate recs Dispo: Admit med-tele FEN/GI: LR@100mL/hr, NPO VTE ppx: Lovenox Full Code Admission and Anticipated Discharge Date Admission Date: July 20, 2024 History of Present Illness Primary Care Provider: Benny Fong MD 83 year old female with PMHx that includes COPD, HTN, hypothyroidism, chronic constipation, and depression/anxiety presents with acute abdominal pain x1 day. Patient is a poor historian; daughter is at bedside and provides much of the history. Patient has a history of chronic constipation and struggles with daily nausea at baseline, for which she follows with outpatient GI. Problem list in EHR includes chronic pancreatitis and IPMN, but it appears these diagnoses were added based on the impression from a single CT A/P. Since then, patient has had more than one CT A/P with contrast, none of which note anything to suggest pancreatic pathology. Patient and daughter are unfamiliar with these diagnoses, deny associated work up or treatment by GI. Current abdominal pain started this morning, describes sharp epigastric pain with radiation into the back. Not as bad now, rates it as 6/10. Unable to tolerate PO intake, denies vomiting or diarrhea. Denies EtOH use, denies known history of hyperTGemia, denies recent illness, fever/chills. Patient had GB removed in 12/2023. Pt also reports worsening SOB. At baseline, patient is on 2L supplemental O2 when at rest, 4L with activity. She hasn't necessarily needed to bump up her O2 but feels that MCCLOUD has been more noticeable. Also reports increased cough and sputum production over the past week. ED Course: Labs significant for lipase of 7583 CT A/P with IV contrast negative. In particular, no pancreatic abnormalities noted. CTA chest negative Allergies Allergy/AdvReac Type Severity Reaction Status Date / Time nickel Allergy Intermediate cheap Verified 07/19/24 18:43 jewelry - skin irritation levofloxacin [From Levaquin] Allergy Unknown Unknown Verified 07/19/24 18:43 simvastatin [From Zocor] Allergy Unknown Unknown Verified 07/19/24 18:43 aspirin AdvReac Intermediate stomach Verified 07/19/24 18:43 burning (on an empty stomach) ondansetron [From Zofran] AdvReac Intermediate tremor - Verified 07/19/24 18:43 takes Rx sparingly Home Medications Medication Instructions Recorded Confirmed Type Oxygen humidifier for concentrator #1 ea 03/29/23 07/04/24 Rx nebulizers #1 ea 04/09/23 07/04/24 Rx cholecalciferol (vitamin D3) 25 1,000 unit PO QAM 07/27/23 07/19/24 History mcg (1,000 unit) capsule (Vitamin D3) cyanocobalamin (vitamin B-12) 1,000 mcg PO QAM 07/27/23 07/19/24 History 1,000 mcg capsule diltiazem HCl 120 mg capsule,24 120 mg PO QAM #90 caps 09/17/23 07/19/24 Rx hr,extended release hyoscyamine sulfate 0.125 mg 0.125 mg sublingual BID PRN 10/11/23 07/19/24 Rx sublingual tablet abdominal pain #60 tabs Wheeled Walker #1 ea 12/07/23 07/04/24 Rx fluoxetine 20 mg capsule 20 mg PO DAILY #30 caps 02/02/24 07/19/24 Rx THC gummy 1 gummy PO DAILY PRN pain #30 ea 02/15/24 07/19/24 Rx Portable Oxygen #1 ea 04/11/24 07/04/24 Rx budesonide 160 mcg-glycopyr 9 2 inh inhalation BID #10.7 grams 04/11/24 07/19/24 Rx mcg-formot 4.8 mcg/actuation HFA inhaler (Anpath Groupphere) guaifenesin 600 mg tablet, 1,200 mg (2 x 600 mg) PO BID PRN 04/11/24 07/19/24 Rx extended release 12 hr (Mucinex) Congestion #120 tabs ipratropium 0.5 mg-albuterol 3 mg 3 ml inhalation Q4H PRN wheezing 04/11/24 07/19/24 Rx (2.5 mg base)/3 mL nebulization #180 mL soln sodium chloride 3 % for 4 ml inhalation BID PRN secretions 04/11/24 07/19/24 Rx nebulization #750 mL ipratropium 20 mcg-albuterol 100 1 puff inhalation QID PRN 04/19/24 07/19/24 Rx mcg/actuation mist for inhalation shortness of breath or wheezing #4 (Combivent Respimat) grams omeprazole 20 mg tablet,delayed 20 mg PO QAM #30 tabs 04/21/24 07/19/24 Rx release hydroxyzine HCl 10 mg tablet 10 mg PO TID PRN anxiousness #90 05/08/24 07/19/24 Rx tabs ensifentrine 3 mg/2.5 mL 3 mg (2.5 mL) inhalation BID #150 06/29/24 07/19/24 Rx suspension for nebulization mL (Ohtuvayre) ondansetron HCl 4 mg tablet 4 mg PO Q6H PRN nausea and 07/12/24 07/19/24 Rx vomiting 7 days #60 tabs levothyroxine 25 mcg tablet 25 mcg PO DAILYBB 07/19/24 07/19/24 History lorazepam 0.5 mg tablet 0.5 mg PO QID PRN anxiety #120 tabs 07/19/24 07/19/24 Rx mirtazapine 30 mg tablet 30 mg PO HS 07/19/24 07/19/24 History Past Med/Surg History Problem List (Updated 07/20/24 @ 02:49 by Tera Fierro DO) Acute pancreatitis Elevated lipase (Acute) Blood loss anemia Status post cholecystectomy Abdominal pain Abnormal chest x-ray Productive cough Underweight Chronic obstructive pulmonary disease (Acute) Weight loss, non-intentional Pulmonary infiltrate Ambulatory dysfunction Hyponatremia Iron deficiency anemia Blood in stool Nausea Dilated pancreatic duct Chronic pancreatitis (Acute) IPMN (intraductal papillary mucinous neoplasm) Insomnia Chronic respiratory failure with hypoxia COPD with emphysema Hypothyroidism Abnormal weight loss Chronic constipation Abnormality of pancreatic duct Abdominal pain intermittent Dyspnea Intermittent palpitations Hand pain Abnormal thyroid blood test (Acute) Allergic rhinitis (Acute) Chronic low back pain (Acute) Depression (Acute) Fatigue (Acute) Generalized anxiety disorder (Acute) Hyperlipidemia (Acute) Osteoporosis (Acute) Tobacco use (Acute) Vitamin D deficiency (Acute) Medical History SVT (supraventricular tachycardia) Hyperparathyroidism Tingling of both feet bilaterally - present x years- stable COPD with emphysema - admitted with COPD exacerbation 11/29/23 - f/u loreto rebollar and dr. [place] - patient feels breathing at baseline Dilated pancreatic duct Chronic constipation SOBOE (shortness of breath on exertion) chronic and stable per patient IPMN (intraductal papillary mucinous neoplasm) Hx of chronic respiratory failure - on continuous oxygen 2-4lpm Fecal occult blood test positive (06/21/23) hx-had colonoscopy 09/2023, no findings Generalized weakness Abdominal pain "comes and goes" with bloating and acid reflux symptoms. Chronic bronchitis Chronic pancreatitis per record, including record of Intraductal Papillary mucinous neoplasm - pt denies have any problems with her pancreas. Hx of supraventricular tachycardia per chart - pt unsure of details, thinks it is controlled w/ diltiazem, does not follow w/ cardio Osteoporosis Osteoarthritis Insomnia Chronic fatigue Iron deficiency anemia hx Hypothyroidism Depression Anxiety Hyperlipidemia Hypertension hx History of pneumonia 03/2023. treated inpatient in 04/2023 at [facility] for respiratory failure. discharged home on 2lpm of oxygen continuously at rest, 4L w/activity On home oxygen therapy 2-4 lpm via n/c continuously. Surgical History Hx laparoscopic cholecystectomy (12/30/23) Diagnostic Laparoscopy, Laparoscopic Cholecystectomy(Not Applicable) - Jarad Cao DO History of esophagogastroduodenoscopy (EGD) most recent spring 2023 History of colonoscopy most recent 09/2023 History of tonsillectomy and adenoidectomy H/O breast biopsy benign Family History Mother Myocardial infarction Father Cancer Other No family history of adverse response to anesthesia Social History Smoking Status: Former smoker Tobacco Type: Cigarettes Age Started Using Tobacco: 22; Age Quit Using Tobacco: 82; packs per day: 0.75; Second Hand Exposure: No; Do You Dip or Chew Tobacco: No; Tobacco Cessation Education Requested by Patient: No Hx Alcohol Use: No Hx Substance Use: No Preferred Language: Togolese Communication Ability: Effective Aerial Installer Required: No Beliefs That Will Affect Care: None marital status: Current Living Situation: Spouse current occupational status: unemployed Other Information That Helps Us Care for You: No Feels Safe at Home: Yes Safety Concerns: Feels Safe At This Time Dental Care, Regularly: No Physical Activity Frequency: Does not Exercise Seatbelt Use: always Sunscreen Use: Yes Assistive Devices: Oxygen - Continuous Review of Systems Review of Systems: as per HPI Physical Exam Physical Exam: Constitutional: no acute distress, frail appearing HEENT: NCAT, no conjunctival injection CV: RRR, extremities well-perfused, no LE edema Resp: significantly diminished breath sounds throughout all lung shields, no wheezes/rales/rhonchi appreciated. GI: nondistended MSK: no gross deformities Skin: warm, dry, no rash appreciated Neuro: alert, oriented, no focal neurologic deficit appreciated. +tangential speech Results & Data Results & Data Vital Signs (Past 12 Hours) Vital Signs Temp Pulse Pulse Resp BP BP Pulse Ox 07/20/24 01:34 58 L 17 160/73 H 98 07/20/24 00:00 63 17 114/64 95 07/19/24 22:33 58 L 19 97 07/19/24 22:15 62 17 95 07/19/24 22:00 149/94 H 07/19/24 22:00 149/94 H 07/19/24 21:57 66 24 07/19/24 21:42 64 22 96 07/19/24 21:30 60 22 97 07/19/24 21:25 58 L 07/19/24 21:21 59 L 20 97 07/19/24 21:15 134/62 07/19/24 21:15 134/62 07/19/24 21:03 60 17 97 07/19/24 21:00 60 17 97 07/19/24 20:57 62 17 97 07/19/24 20:30 142/106 H 07/19/24 20:21 64 21 98 07/19/24 20:14 137/58 L 07/19/24 20:14 137/58 L 07/19/24 20:12 64 29 H 97 07/19/24 20:09 73 20 97 07/19/24 19:39 68 23 97 07/19/24 19:06 57 L 29 H 98 07/19/24 19:00 142/70 H 07/19/24 18:57 59 L 29 H 98 07/19/24 18:51 61 23 99 07/19/24 18:45 58 L 13 98 07/19/24 18:33 59 L 16 98 07/19/24 18:30 146/62 H 07/19/24 18:27 61 18 99 07/19/24 18:21 59 L 16 98 07/19/24 18:03 61 26 H 100 07/19/24 18:00 158/71 H 07/19/24 17:49 56 L 07/19/24 16:44 36.5 C 66 18 130/64 98 07/19/24 16:21 58 L 24 141/58 H 98 O2 Del Method O2 Flow Rate 07/20/24 01:34 Room Air 07/20/24 00:00 Nasal Cannula 2 07/19/24 22:33 07/19/24 22:15 07/19/24 22:00 07/19/24 22:00 07/19/24 21:57 07/19/24 21:42 07/19/24 21:30 07/19/24 21:25 07/19/24 21:21 07/19/24 21:15 07/19/24 21:15 07/19/24 21:03 07/19/24 21:00 07/19/24 20:57 07/19/24 20:30 07/19/24 20:21 07/19/24 20:14 07/19/24 20:14 07/19/24 20:12 07/19/24 20:09 07/19/24 19:39 07/19/24 19:06 07/19/24 19:00 07/19/24 18:57 07/19/24 18:51 07/19/24 18:45 07/19/24 18:33 07/19/24 18:30 07/19/24 18:27 07/19/24 18:21 07/19/24 18:03 07/19/24 18:00 07/19/24 17:49 07/19/24 16:44 Nasal Cannula 2 07/19/24 16:21 Nasal Cannula 2 Supervising Physician Co-Signing Physician Notes Patient seen and examined, chart reviewed, case discussed with Dr. Fierro and I agree with the assessment and plan as above In brief, patient is an 83yo female with history of COPD, HTN, chronic constipation presenting with acute pancreatitis - abdominal pain with elevated lipase Patient with persistent nausea with poor oral intake ongoing for many weeks On exam she is frail, cachectic appearing Skin - no jaundice, no rash HEENT - MMM, neck supple Heart - +S1/S2, regular, MARKO present across precordium Lungs - CTA anteriorly Abd - mild tenderness in epigastric area, no rebound or guarding Labs and images reviewed Assessment/Plan -NPO -IVF -Pain control and anti-emetics -Nutrition consultation re: poor PO intake, FTT, persistent nauseas -Remainder as above Resident Activity Tracking Resident Involvement: Resident Care Provided Care Provided: Adult [facility]
[2024-07-20] MEDS ORDERED: LORazepam 2 MG/1 ML VIAL IV PRN (02:24)
[2024-07-20] MEDS ORDERED: ACETAMINOPHEN 1,000 MG/100 ML VIAL IV PRN (02:24)
[2024-07-20] MEDS ORDERED: SODIUM CHLORIDE 0.9% NEBU SOLN 3 ML NEB PRN (02:24)
[2024-07-20] MEDS ORDERED: MoRPHine SULFATE 2 MG/ML CARP IV PRN ×2 (02:24)
[2024-07-20] MEDS ORDERED: guaiFENesin 600 MG TABCR PO PRN (02:24)
[2024-07-20] MEDS ORDERED: NON-FORMULARY MEDICATION (Budesonide-Glycopyr-Formoterol [Breztri Aerosphere] 160-9-4.8 mc INH SCH (02:24)
[2024-07-20] MEDS: MIRTAZAPINE TAB 15 MG TAB PO SCH (03:09)
[2024-07-20] MEDS: LACTATED RINGER'S 1,000 ML IV SCH (03:09)
[2024-07-20] MEDS: methylPREDNISolone 20 MG in SYRINGE 0 ML IV ONE (03:09)
[2024-07-20] MEDS: LEVOTHYROXINE SODIUM 25 MCG TABLET PO SCH (05:43)
--- NOTE | 2024-07-20 07:30 | Hospitalist Progress Note ---
Date of Service July 20, 2024 Assessment & Plan (1) Acute pancreatitis: (2) Weight loss, non-intentional: (3) Chronic respiratory failure with hypoxia: (4) Chronic constipation: (5) Depression: (6) SVT (supraventricular tachycardia): (7) Hypothyroidism: (8) Hypertension: Plan 83 year old female with PMHx that includes COPD, HTN, hypothyroidism, chronic constipation, and depression/anxiety presents with acute abdominal pain x1 day found to have markedly elevated lipase. #Acute Pancreatitis: Despite CT A/P with IV contrast that was negative, pt presentation with acute epigastric pain and elevated lipase consistent with acute pancreatitis. Unclear precipitating factor. clear liquid diet IV fluids 2 L LR Zofran PRN for nausea/vomiting Pain control: IV Tylenol 1g Q8H PRN, PRN Dilaudid available for breakthrough pain - recommend caution d/t risk of exacerbating constipation. Chronic constipation, Could consider Relistor if requiring large amount of opioids for pain control. Check fasting lipid panel to r/o hypertriglyceridemia #COPD: Current presentation does not overtly appear to be an acute COPD exacerbation, though with significantly diminished air movement on exam, started IV Solumedrol 20mg daily add qid Duonebs Duonebs, saline nebs PRN Mucinex BID Flutter valve #pSVT // HTN: stable Continue home Diltiazem #Hypothyroidism: Continue home levothyroxine #Anxiety // #Depression: Patient on chronic Ativan 2mg/day distributed PRN across the day - continue PRN while inpatient, caution for oversedation if also requiring opioid analgesics Continue home Mirtazapine #significant weight loss, #Protein calorie malnutrition, underweight BMI 16.9 - certified lactation educator consulted, appreciate recs VTE ppx: Lovenox Admission and Anticipated Discharge Date Admission Date: July 20, 2024 Subjective pt states her abdominal pain, she requests diet, pt feels that maybe her copd is slightly worse Physical Exam Physical Exam: lungs with poor airmovement but not wheezes abd is soft and non tender Results & Data Results & Data Vital Signs (Past 12 Hours) Vital Signs Temp Pulse Pulse Resp BP BP Pulse Ox 07/20/24 02:04 61 07/20/24 02:00 07/20/24 02:00 97.5 F L 66 16 162/72 H 93 07/20/24 01:34 58 L 17 160/73 H 98 07/20/24 00:00 63 17 114/64 95 07/19/24 22:33 58 L 19 97 07/19/24 22:15 62 17 95 07/19/24 22:00 149/94 H 07/19/24 22:00 149/94 H 07/19/24 21:57 66 24 07/19/24 21:42 64 22 96 07/19/24 21:30 60 22 97 07/19/24 21:25 58 L 07/19/24 21:21 59 L 20 97 07/19/24 21:15 134/62 07/19/24 21:15 134/62 07/19/24 21:03 60 17 97 07/19/24 21:00 60 17 97 07/19/24 20:57 62 17 97 07/19/24 20:30 142/106 H 07/19/24 20:21 64 21 98 07/19/24 20:14 137/58 L 07/19/24 20:14 137/58 L 07/19/24 20:12 64 29 H 97 07/19/24 20:09 73 20 97 07/19/24 19:39 68 23 97 O2 Del Method O2 Flow Rate 07/20/24 02:04 07/20/24 02:00 Nasal Cannula 2 07/20/24 02:00 Nasal Cannula 2 07/20/24 01:34 Room Air 07/20/24 00:00 Nasal Cannula 2 07/19/24 22:33 07/19/24 22:15 07/19/24 22:00 07/19/24 22:00 07/19/24 21:57 07/19/24 21:42 07/19/24 21:30 07/19/24 21:25 07/19/24 21:21 07/19/24 21:15 07/19/24 21:15 07/19/24 21:03 07/19/24 21:00 07/19/24 20:57 07/19/24 20:30 07/19/24 20:21 07/19/24 20:14 07/19/24 20:14 07/19/24 20:12 07/19/24 20:09 07/19/24 19:39 PG Care Time/CCT Total # of Minutes Spent Total Time Spent with Patient: Total time spent is greater than 50% in coordination of care (as documented) at patient's floor/unit and/or counseling patient: Coding Level of Care Code 96753 SUB INP/OBS CARE 2/35MIN Diagnoses Acute pancreatitis K85.90 Weight loss, non-intentional R63.4 Chronic respiratory failure with hypoxia J96.11 Chronic constipation K59.09 Depression F32.9 SVT (supraventricular tachycardia) I47.1 Hypothyroidism E03.9 Hypertension I10
[2024-07-20 08:41] LABS: Chol HDL Ratio 3.3 (0-5)
[2024-07-20] MEDS: methylPREDNISolone 20 MG in SYRINGE 0 ML IV SCH (09:45)
[2024-07-20] MEDS: ENOXAPARIN INJ 40 MG/0.4 ML SYR SQ SCH (09:45)
[2024-07-20] MEDS: guaiFENesin 600 MG TABCR PO SCH (09:45)
[2024-07-20] MEDS: dilTIAZem HCL 120 MG CAPCR PO SCH (09:46)
[2024-07-20] MEDS: FLUTICASONE FUROATE 200MCG 14 PUFFS/INHALER INH SCH (09:46)
[2024-07-20] MEDS: CYANOCOBALAMIN (B-12) 500 MCG TABLET PO SCH (09:46)
[2024-07-20] MEDS: UMECLIDINIUM/VILANTEROL 62.5/25MCG 7 PUFFS/INHALER INH SCH (09:46)
[2024-07-20] MEDS: CHOLECALCIFEROL 25 MCG (1000 UNITS) TAB PO SCH (09:47)
[2024-07-20] MEDS: ALBUT/IPRATROP 3MG/0.5MG NEB 3 ML VIAL NEB PRN (11:14)
[2024-07-20] MEDS: ACETAMINOPHEN IV PRN (11:44)
[2024-07-20] MEDS: LORazepam 1 MG TAB PO PRN (11:44)
[2024-07-20] MEDS: SENNA 8.6 MG TAB PO SCH ×2 (11:44→20:37)
[2024-07-20] MEDS: ALBUT/IPRATROP 3MG/0.5MG NEB 3 ML VIAL NEB SCH (14:46)
--- NOTE | 2024-07-20 17:14 | Electrocardiogram Report ---
Test Reason : Blood Pressure : */* mmHG Vent. Rate : 59 BPM Atrial Rate : 59 BPM P-R Int : 150 ms QRS Dur : 80 ms QT Int : 424 ms P-R-T Axes : 81 82 76 degrees QTcB Int : 419 ms Sinus bradycardia Possible Left atrial enlargement Low voltage QRS Borderline ECG When compared with ECG of 29-Nov-2023 15:49, No significant change was found Confirmed by David Cary ([id number]) on 07/20/2024 5:13:47 PM Referred By: REFERRED SELF Confirmed By: David Cary
--- OUTSIDE RECORDS SUMMARY | 2024-07-20 20:25 | External Medical Summary | Summary of Care ---
Author Name Unknown Organization [facility] Address [address] [place] [address] Phone [phone] Care Team Providers Care Gear Setter Name Role Phone Benny Fong MD Primary Care Provider [phone] Reason for Visit * Reason Onset Date Comments Appointment 07/10/2024 Encounter Details Date Type Department Care Team (Late st Contact Info) Description 07/10/2024 Telephone Care at Home [address], [place] [phone] Lena Figueroa, NIKOLAI [address], [place] [phone] Appointment Allergies Active Allergy Reactions Criticality Noted Date Comments Aspirin Abdominal pain Medium 10/22/2023 Levofloxacin Vancomycin Flushing Syndrome Low 10/21 Ondansetron Other (Please comment) Medium 10/22/2023 tremor Simvastatin Unknown 10/22/2023 documented as of this encounter (statuses as of 07/10/2024) Medications LORAZEPAM 0.5 MG PO TABS 4 times daily as needed 0 09/04/19 07 Active Mirtazapine 30 MG Oral Tablet (Remeron) Take 1 Tablet by mouth at bedtime. Active Ipratropium-Albute rol 20-100 MCG/ACT Inhalation Aerosol Solution (Combivent Respimat) Inhale 1 Puff by mouth in the morning and 1 Puff at noon and 1 Puff in the evening and 1 Puff before bedtime. Active Stiolto Respimat 2.5-2.5 MCG/ACT Inhalation Aerosol Solution (Tiotropium-Olodat hawa) Inhale 2 Puffs by mouth in the morning. Active dilTIAZem HCl ER 120 MG Oral Tablet Extended Release 24 Hour Take 120 mg by mouth. 11/24/19 Active Levothyroxine Sodium 25 MCG Oral Tablet (Levoxyl) Take 1 Tablet by mouth daily first thing in the morning. 07/17/19 Active oxygen IN GAS Administer 2 L/min(Oxygen) into nostril continuous. 03/15/19 Active predniSONE 20 MG Oral Tablet (Deltasone) Take 1 Tablet by mouth in the morning. 1 Tablet 03/16/19 Active Additional Information Patient not taking.Reported on 10/22/2023 Nicotine 14 MG/24HR Transdermal Patch 24 Hour (Nicoderm CQ) Place 1 Patch over 24 hours topically on the skin daily. 28 Patch 03/15/19 Active Additional Information Patient not taking.Reported on 10/22/2023 Azithromycin 250 MG Oral Tablet (Zithromax) Take 1 tab daily till all 4 Tablet 09/28/19 Active Additional Information Patient not taking.Reported on 10/22/2023 Breztri Aerosphere 160-9-4.8 MCG/ACT Inhalation Aerosol (Budeson-Glycopyrr ol-Formoterol) Inhale by mouth. Active Ipratropium-Albute rol 0.5-2.5 (3) MG/3ML Inhalation Solution (Duoneb) Inhale 3 mL by mouth every 6 hours as needed. Active FLUoxetine HCl 40 MG Oral Capsule (PROzac) Take 1 Capsule by mouth in the morning. Active Ondansetron 4 MG Oral Film (Zuplenz) Take by mouth. Activ e Hyoscyamine Sulfate 0.125 MG Oral Tablet Disintegrating Take by mouth. Active Famotidine 20 MG Oral Tablet (Pepcid) Take 1 Tablet by mouth in the morning and 1 Tablet before bedtime. Active Cholecalciferol 25 MCG (1000 UT) Oral Tablet Take 1 Tablet by mouth in the morning. Active guaiFENesin ER 600 MG Oral Tablet Extended Release 12 Hour (Mucinex) Take 1 Tablet by mouth in the morning and 1 Tablet before bedtime. Active Cyanocobalamin 1000 MCG Oral Tablet (Cyanocobalamin) Take 1 Tablet by mouth in the morning. Active Omeprazole 20 MG Oral Capsule Delayed Release (PriLOSEC) Take 1 Capsule by mouth every night at bedtime. 34 Capsule 04/15/19 25 Active documented as of this encounter (statuses as of 07/10/2024) Active Problems Problem Noted Date Diagnosed Date Chronic constipation 03/11/2023 COPD exacerbation 03/11/2023 Depression 03/11/2023 Generalized anxiety disorder 03/11/2023 Hyperlipidemia 03/11/2023 Osteoporosis 03/11/2023 SVT (supraventricular tachycardia) 03/11/2023 Acute respiratory failure with hypoxia Left lower lobe pneumonia 03/11/2023 Severe protein-energy malnutrition 03/11/2023 IPMN (intraductal papillary mucinous neoplasm) 0 03/11/2023 Tobacco use 03/11/2023 Pancreatic cyst 03/11/2023 Poor appetite 03/11/2023 documented as of this encounter (statuses as of 07/10/2024) Social History Tobacco Use Types Packs/Day Years Used Date Smoking Tobacco: Former Cigarettes 0.5 60 1 964 - 03/11/2023 Passive Smoke Exposure: Never Smokeless Tobacco: Never Alcohol Use Standard Drinks/Week Comments No 0 (1 standard drink = 0.6 oz pur e alcohol) Comments No Sex and Gender Information Value Date Recorded Sex Assigned at Not on file Legal Sex Female 5:53 AM EST Gender Identity Not on file Sexual Orientation Not on file documented as of this encounter Functional Status * Are you deaf or do you have serious difficulty hearing? Answer Date of Assessment Author No 03/11/2023 2:07 PM EST Luis Brenner RN * Are you blind or do you have serious difficulty seeing, even when wearing glasses? Answer Date of Assessment Author No 03/11/2023 2:07 PM EST Luis Brenner RN * Does this person have serious difficulty walking or climbing stairs? Answer Date of Assessment Author Yes 10/22/2023 3:50 PM EDT Luis Brenner RN * Do you have difficulty dressing or bathing? (5 years old or older) Answer Date of Assessment Author Yes 03/11/2023 2:07 PM Luis Carreno, RN * Because of a physical, mental, or emotional condition, do you have difficulty doing errands alone such as visiting a doctor’s office or shopping? (15 years old or older) Answer Date of Assessment Author Yes 03/11/2023 2:07 PM Luis Carreno RN documented as of this encounter Mental Status * Because of a physical, mental, or emotional condition, do you have serious difficulty concentrating, remembering, or making decisions? (5 years old or older) Answer Entry Date Author No 03/11/2023 2:07 PM Luis Carreno, RN documented in this encounter Miscellaneous Notes * Telephone Encounter - Lena Figueroa OSA - 07/10/2024 10:15 AM EDT Care At Home Outreach Call attempt: 1st Call Call result: Call Successful - Patient enrolled and agreed to visit. Appointment with: Krystal Ray PA-C Visit Date: 08/22/24 Visit Time: 2pm with spouse Visit Type: In person documented in this encounter Plan of Treatment Upcoming Encounters Date Type Department Care Team (Late st Contact Info) Description 08/22/2024 2:00 PM EDT Home Visit Care at Home [address], [place] [phone] Krystal Ray PA-C [address], [place] [phone] Scheduled Procedures Name Priority Associated Diagnoses Date/Ti me COLONOSCOPY FLEXIBLE PROXIMA L DIAGNOSTIC Recall History of colonic polyps Health Maintenance Due Date Last Done Comments Depression Monitoring 1954 Alpha-1 Antitrypsin 1960 DTap/Tdap Vaccines (1 - Tdap) 1961 VITAMIN D LEVEL ONCE IN A LIFETIME-USE SMARTSET# 08143 1982 Zoster Vaccines (1 of 2) 1992 DXA Scan 07/17/2018 07/17/2016, 09/19/2013 TSH 06/21/2021 06/21/2020 Colonoscopy 02/04/2023 02/04/2021, 02/04/2021 *BISPHONATE OR OTHER ACCEPTABLE MEDICATION NEEDED FOR OSTEOPOROSIS (REFER TO SMARTSET #1146) 03/31/2023 COVID-19 Vaccine ( season) 2023 09/05/2021, 02/20/2021, 05/04/2020, Additional history exists O2 ASSESSMENT COMPLETED IN PAST YEAR FOR COPD 04/15/2025 04/15/2024 RETIRED - COLONOSCOPY-EVERY 2 YRS AGES 18-100 Discontinued 02/04/2021, 02/04/2021 Pneumococcal Vaccine: 50+ Years Completed 06/16/2022, 04/09/2016, 12/02/2007 Influenza Vaccine (FLU shot) Completed 12/07/2023, 01/25/2019 HPV (Gardasil) Vaccine Aged Out No lo nger eligible based on patient's age to complete this topic Hepatitis B Vaccine Aged Out No longe r eligible based on patient's age to complete this topic MENINGOCOCCAL (MENACTRA/MENVEO) Aged Out No longer eligible based on patient's age to complete this topic Meningitis B Vaccine (Bexsero/Trumemba) Aged Out No longer eligible based on patient's age to complete this topic documented as of this encounter Medical Devices Not on filedocumented as of this encounter Advance Directives * Full Code (Latest Code Status on File) Date Activated Date Inactivated Comments 03/11/2023 11:15 AM 03/15/2023 9:31 PM This order re flects the patients wishes and were consensually agreed upon. Question Answer Comments Discussion of Advance Directives occurred with: Patient Care Teams Gear Setter Relationship Specialty Start Date End Date [facility] [address] [facility] [place] [phone] P[facility] - General Family Medicine 11/01/23 documented as of this encounter
[2024-07-20] MEDS: SENNA 8.6 MG TAB PO ONE ×2 (21:12)
--- NOTE | 2024-07-21 00:44 | Billing Data ---
Date of Service July 20, 2024 Coding Level of Care Code 90572 INT INP/OBS CARE
[2024-07-21 06:47] LABS: Hematocrit (blood only) 29.7 % (37.0-47.0); Hemoglobin 9.9 g/dl (12.0-16.0); Mean Corpuscular Hemoglobin 28.9 pg (25.0-34.0); Mean Corpuscular Hgb Conc 33.3 g/dL (32.0-36.0); Mean Corpuscular Volume 86.8 fL (80.0-100.0); Mean Platelet Volume 8.3 fL (9.4-12.4); Platelet Count 250 K/uL (130-400); RDW Coefficient of Variation 13.2 % (11.5-14.5); RDW Standard Deviation 41.7 fL (36.4-46.3); Red Blood Count 3.42 M/uL (4.20-5.40); White Blood Count 8.97 K/ul (4.8-10.8)
[2024-07-21 07:20] LABS: Albumin Globulin Ratio 1.7 (0.9-2); Albumin Level 3.5 gm/dl (3.4-5.0); BUN Creatinine Ratio 17.1 (10-20); Bilirubin,Total 0.4 mg/dl (0.2-1.0); Calcium 8.8 mg/dl (8.6-10.3); Creatinine Clr Calc Pharmacy 33.8 ml/min; Globulin 2.1 gm/dl (2.5-4.0); Potassium 3.9 mmol/L (3.5-5.1); Total Protein 5.6 gm/dl (6.0-8.3)
[2024-07-21] MEDS: ACETAMINOPHEN 325 MG TAB PO PRN (08:54)
--- NOTE | 2024-07-21 10:04 | Hospitalist Progress Note ---
Date of Service July 21, 2024 Assessment & Plan (1) Acute pancreatitis: Plan: -lipase decreased to 121 -advance diet to full liquids -s/p IVF -pain control with Tylenol po (2) Chronic obstructive pulmonary disease: Plan: -duonebs -solumedrol -con't home inhailers (3) Elevated lipase: (4) Status post cholecystectomy: (5) Abdominal pain: (6) Weight loss, non-intentional: (7) Chronic respiratory failure with hypoxia: (8) Chronic constipation: Plan: Hold home Miralax - substitute with daily Senna, PRN Dulcolax suppository (9) Depression: (10) Generalized anxiety disorder: Plan: Patient on chronic Ativan 2mg/day distributed PRN across the day - continue PRN while inpatient (11) SVT (supraventricular tachycardia): Plan: Continue home Diltiazem (12) Hypothyroidism: Plan: Continue home levothyroxine (13) Hypertension: Plan 83 year old female with PMHx that includes COPD, HTN, hypothyroidism, chronic constipation, and depression/anxiety presents with acute abdominal pain x1 day: Admission and Anticipated Discharge Date Admission Date: July 20, 2024 Subjective No events overnight, pt states her abdominal pain has resolved. She is jos ating her clear liquid diet. Advanced to full liquid this am. Review of Systems Review of Systems: CONST: Negative for fever, body aches and chills. HENT: Negative for neck pain/stiffness, headache, congestion, sore throat, swelling. EYES: Negative for discharge/pain or vision changes. RESP: Negative for cough/hemoptysis and shortness of breath. CV: Negative chest pain, difficulty breathing, palpitations. ABD: Negative pain, nausea, vomiting. : Negative increase frequency, dysuria, blood in urine or stool. MUSC: Negative for muscle aches, edema. SKIN: Negative rash, lesions/sores. NEURO: Negative headache, dizziness, weakness. Physical Exam Physical Exam: GENERAL APPEARANCE NAD, activity normal for age, well developed/ well nourished, no cyanosis, pallor, or diaphoresis. EYES lids/conjunctiva normal. EARS/NOSE/THROAT Mucous membranes moist, nares normal, lips/teeth normal uvula midline without oral pharyngeal erythema, exudate or swelling TMs normal bilaterally. No lymphangitis/lymphedema. HEAD/NECK normocephalic atraumatic, no facial trauma, neck is supple. RESPIRATORY respiratory effort normal, speaks in full sentences, no tripod position, no accessory muscle use. Lungs clear to auscultation without rhonchi, wheezes, rales CARDIAC Regular rate and rhythm, no edema. ABDOMINAL Soft, ND/NT. No evidence of fluid wave. No pulsatile masses on exam, rebound tenderness, Luna sign or pain over Mcburney's point. MUSCLES/EXTREMITIES No abnormal range of motion, no swelling. SKIN Warm, pink and dry. No rashes, dermatoses, petechiae or lesions. NEUROLOGICAL Speech is clear and appropriate. Normal level of consciousness. Gait and coordination are normal. 5/5 strength in all extremities. PSYCH Normal mood and affect. Judgement/competence is appropriate Results & Data Results & Data Vital Signs (Past 12 Hours) Vital Signs Temp Pulse Pulse Pulse Resp BP Pulse Ox 07/21/24 08:15 62 07/21/24 08:00 07/21/24 07:56 36.6 C 73 14 130/60 97 07/21/24 07:21 80 18 93 07/21/24 03:32 36.5 C 71 18 142/57 H 96 07/21/24 00:15 36.6 C 96 H 20 119/60 96 07/20/24 23:03 121 H O2 Del Method O2 Flow Rate 07/21/24 08:15 07/21/24 08:00 Nasal Cannula 2 07/21/24 07:56 Nasal Cannula 07/21/24 07:21 Nasal Cannula 2 07/21/24 03:32 Nasal Cannula 2 07/21/24 00:15 Nasal Cannula 2 07/20/24 23:03 PG Care Time/CCT Total # of Minutes Spent Total Time Spent with Patient: Total time spent is greater than 50% in coordination of care (as documented) at patient's floor/unit and/or counseling patient: Coding Level of Care Code 27364 SUB INP/OBS CARE 2/35MIN Diagnoses Acute pancreatitis K85.90 Chronic obstructive pulmonary disease J44.9 Elevated lipase R74.8 Status post cholecystectomy Z90.49 Abdominal pain R10.9 Weight loss, non-intentional R63.4 Chronic respiratory failure with hypoxia J96.11 Chronic constipation K59.09 Depression F32.9 Generalized anxiety disorder F41.1 SVT (supraventricular tachycardia) I47.1 Hypothyroidism E03.9 Hypertension I10
[2024-07-21 15:04] LABS: Base Excess VBG 0.3 mEq/L; HCO3 VBG 27 mmol/L; Oxygen Saturation VBG < 60.0 %; PCO2 VBG 48 mmHg (38-50); PO2 VBG 31 mmHg; pH VBG 7.35 (7.36-7.41)
[2024-07-22] MEDS: ONDANSETRON INJ 2 MG/ML 2 ML VIAL IV PRN (08:38)
--- NOTE | 2024-07-22 10:06 | Hospitalist Progress Note ---
Date of Service July 22, 2024 Assessment & Plan (1) Acute pancreatitis: Plan: -lipase decreased to 126 -s/p IVF -pain control with Tylenol po -pt unable to tolerate regular diet at this time, change back to full liquid -monitor overnight (2) Chronic obstructive pulmonary disease: Plan: -duonebs -solumedrol -con't home inhailers -2-step confirms no additional 02 needs for discharge (3) Elevated lipase: (4) Status post cholecystectomy: (5) Abdominal pain: (6) Weight loss, non-intentional: (7) Chronic respiratory failure with hypoxia: (8) Chronic constipation: Plan: Hold home Miralax - substitute with daily Senna, PRN Dulcolax suppository (9) Depression: (10) Generalized anxiety disorder: Plan: Patient on chronic Ativan 2mg/day distributed PRN across the day - continue PRN while inpatient (11) SVT (supraventricular tachycardia): Plan: Continue home Diltiazem (12) Hypothyroidism: Plan: Continue home levothyroxine (13) Hypertension: Plan 83 year old female with PMHx that includes COPD, HTN, hypothyroidism, chronic constipation, and depression/anxiety presents with acute abdominal pain x1 day: Admission and Anticipated Discharge Date Admission Date: July 20, 2024 Subjective Pt states she feeling nausea after eating regular diet. Review of Systems Review of Systems: CONST: Negative for fever, body aches and chills. HENT: Negative for neck pain/stiffness, headache, congestion, sore throat, swelling. EYES: Negative for discharge/pain or vision changes. RESP: Negative for cough/hemoptysis and shortness of breath. CV: Negative chest pain, difficulty breathing, palpitations. ABD: Negative pain, nausea, vomiting. : Negative increase frequency, dysuria, blood in urine or stool. MUSC: Negative for muscle aches, edema. SKIN: Negative rash, lesions/sores. NEURO: Negative headache, dizziness, weakness. Physical Exam Physical Exam: GENERAL APPEARANCE NAD, activity normal for age, well developed/ well nourished, no cyanosis, pallor, or diaphoresis. EYES lids/conjunctiva normal. EARS/NOSE/THROAT Mucous membranes moist, nares normal, lips/teeth normal uvula midline without oral pharyngeal erythema, exudate or swelling TMs normal bilaterally. No lymphangitis/lymphedema. HEAD/NECK normocephalic atraumatic, no facial trauma, neck is supple. RESPIRATORY respiratory effort normal, speaks in full sentences, no tripod position, no accessory muscle use. Lungs clear to auscultation without rhonchi, wheezes, rales CARDIAC Regular rate and rhythm, no edema. ABDOMINAL Soft, ND/NT. No evidence of fluid wave. No pulsatile masses on exam, rebound tenderness, Luna sign or pain over Mcburney's point. MUSCLES/EXTREMITIES No abnormal range of motion, no swelling. SKIN Warm, pink and dry. No rashes, dermatoses, petechiae or lesions. NEUROLOGICAL Speech is clear and appropriate. Normal level of consciousness. Gait and coordination are normal. 5/5 strength in all extremities. PSYCH Normal mood and affect. Judgement/competence is appropriate Results & Data Results & Data Vital Signs (Past 12 Hours) Vital Signs Temp Pulse Pulse Pulse Resp BP BP 07/22/24 09:04 07/22/24 07:31 36.4 C L 62 20 146/70 H 07/22/24 07:22 68 16 07/22/24 07:12 65 07/22/24 05:57 36.6 C 68 18 172/71 H 07/21/24 22:52 36.5 C 81 18 151/84 H 07/21/24 22:09 81 Pulse Ox O2 Del Method O2 Flow Rate 07/22/24 09:04 Nasal Cannula 2 07/22/24 07:31 99 Nasal Cannula 2 07/22/24 07:22 97 Nasal Cannula 07/22/24 07:12 07/22/24 05:57 100 Room Air 07/21/24 22:52 97 Nasal Cannula 2 07/21/24 22:09 PG Care Time/CCT Total # of Minutes Spent Total Time Spent with Patient: Total time spent is greater than 50% in coordination of care (as documented) at patient's floor/unit and/or counseling patient: Coding Level of Care Code 55449 SUB INP/OBS CARE 2/35MIN Diagnoses Acute pancreatitis K85.90 Chronic obstructive pulmonary disease J44.9 Elevated lipase R74.8 Status post cholecystectomy Z90.49 Abdominal pain R10.9 Weight loss, non-intentional R63.4 Chronic respiratory failure with hypoxia J96.11 Chronic constipation K59.09 Depression F32.9 Generalized anxiety disorder F41.1 SVT (supraventricular tachycardia) I47.1 Hypothyroidism E03.9 Hypertension I10
[2024-07-22] MEDS: bisacodyL 10 MG SUPP PR PRN (14:13)
--- NOTE | 2024-07-23 10:37 | Hospitalist Progress Note ---
Date of Service July 23, 2024 Assessment & Plan (1) Acute pancreatitis: Plan: -lipase decreased to 126 -s/p IVF -pain control with Tylenol po -patient tolerating full liquid diet, will attempt to adavance to regular today -lipase 79 today (2) Chronic obstructive pulmonary disease: Plan: -duonebs -solumedrol -con't home inhailers -2-step confirms no additional 02 needs for discharge (3) Elevated lipase: (4) Status post cholecystectomy: (5) Abdominal pain: (6) Weight loss, non-intentional: (7) Chronic respiratory failure with hypoxia: (8) Chronic constipation: Plan: Hold home Miralax - substitute with daily Senna, PRN Dulcolax suppository (9) Depression: (10) Generalized anxiety disorder: Plan: Patient on chronic Ativan 2mg/day distributed PRN across the day - continue PRN while inpatient (11) SVT (supraventricular tachycardia): Plan: Continue home Diltiazem (12) Hypothyroidism: Plan: Continue home levothyroxine (13) Hypertension: Plan 83 year old female with PMHx that includes COPD, HTN, hypothyroidism, chronic constipation, and depression/anxiety presents with acute abdominal pain x1 day: PT evaluation Admission and Anticipated Discharge Date Admission Date: July 20, 2024 Subjective Pt has been tolerating full liquid diet. Review of Systems Review of Systems: CONST: Negative for fever, body aches and chills. HENT: Negative for neck pain/stiffness, headache, congestion, sore throat, swelling. EYES: Negative for discharge/pain or vision changes. RESP: Negative for cough/hemoptysis and shortness of breath. CV: Negative chest pain, difficulty breathing, palpitations. ABD: Negative pain, nausea, vomiting. : Negative increase frequency, dysuria, blood in urine or stool. MUSC: Negative for muscle aches, edema. SKIN: Negative rash, lesions/sores. NEURO: Negative headache, dizziness, weakness. Physical Exam Physical Exam: GENERAL APPEARANCE NAD, activity normal for age, well developed/ well nourished, no cyanosis, pallor, or diaphoresis. EYES lids/conjunctiva normal. EARS/NOSE/THROAT Mucous membranes moist, nares normal, lips/teeth normal uvula midline without oral pharyngeal erythema, exudate or swelling TMs normal bilaterally. No lymphangitis/lymphedema. HEAD/NECK normocephalic atraumatic, no facial trauma, neck is supple. RESPIRATORY respiratory effort normal, speaks in full sentences, no tripod position, no accessory muscle use. Lungs clear to auscultation without rhonchi, wheezes, rales CARDIAC Regular rate and rhythm, no edema. ABDOMINAL Soft, ND/NT. No evidence of fluid wave. No pulsatile masses on exam, rebound tenderness, Luna sign or pain over Mcburney's point. MUSCLES/EXTREMITIES No abnormal range of motion, no swelling. SKIN Warm, pink and dry. No rashes, dermatoses, petechiae or lesions. NEUROLOGICAL Speech is clear and appropriate. Normal level of consciousness. Gait and coordination are normal. 5/5 strength in all extremities. PSYCH Normal mood and affect. Judgement/competence is appropriate Results & Data Results & Data Vital Signs (Past 12 Hours) Vital Signs Temp Pulse Pulse Resp BP Pulse Ox O2 Del Method 07/23/24 09:10 Nasal Cannula 07/23/24 08:54 36.7 C 77 16 185/71 H 91 Room Air 07/23/24 07:31 62 14 95 Nasal Cannula 07/23/24 07:05 61 07/23/24 02:26 36.4 C L 69 16 152/74 H 95 Nasal Cannula 07/22/24 22:59 Nasal Cannula O2 Flow Rate 07/23/24 09:10 2 07/23/24 08:54 07/23/24 07:31 1 07/23/24 07:05 07/23/24 02:26 1 07/22/24 22:59 2 PG Care Time/CCT Total # of Minutes Spent Total Time Spent with Patient: Total time spent is greater than 50% in coordination of care (as documented) at patient's floor/unit and/or counseling patient: Coding Level of Care Code 07119 SUB INP/OBS CARE 2/35MIN Diagnoses Acute pancreatitis K85.90 Chronic obstructive pulmonary disease J44.9 Elevated lipase R74.8 Status post cholecystectomy Z90.49 Abdominal pain R10.9 Weight loss, non-intentional R63.4 Chronic respiratory failure with hypoxia J96.11 Chronic constipation K59.09 Depression F32.9 Generalized anxiety disorder F41.1 SVT (supraventricular tachycardia) I47.1 Hypothyroidism E03.9 Hypertension I10
[2024-07-24 07:29] VITALS: RESP 17; TEMP 94.5; O2SAT 99
--- NOTE | 2024-07-24 09:00 | Discharge Summary ---
Discharge Summary Date of Service July 24, 2024 Principal Dx & Hospital Course #1 = Principal Diagnosis (1) Acute pancreatitis: -lipase decreased to 126 -s/p IVF -pain control with Tylenol po -pt tolerating regular diet (2) Chronic obstructive pulmonary disease: -duonebs -solumedrol -con't home inhailers -2-step confirms no additional 02 needs for discharge (3) Elevated lipase: (4) Status post cholecystectomy: (5) Abdominal pain: (6) Weight loss, non-intentional: (7) Chronic respiratory failure with hypoxia: (8) Chronic constipation: Hold home Miralax - substitute with daily Senna, PRN Dulcolax suppository (9) Depression: (10) Generalized anxiety disorder: Patient on chronic Ativan 2mg/day distributed PRN across the day - continue PRN while inpatient (11) SVT (supraventricular tachycardia): Continue home Diltiazem (12) Hypothyroidism: Continue home levothyroxine (13) Hypertension: Plan 83 year old female with PMHx that includes COPD, HTN, hypothyroidism, chronic constipation, and depression/anxiety presents with acute abdominal pain x1 day: Admission HPI Per Admitting Provider 83 year old female with PMHx that includes COPD, HTN, hypothyroidism, chronic constipation, and depression/anxiety presents with acute abdominal pain x1 day. Patient is a poor historian; daughter is at bedside and provides much of the history. Patient has a history of chronic constipation and struggles with daily nausea at baseline, for which she follows with outpatient GI. Problem list in EHR includes chronic pancreatitis and IPMN, but it appears these diagnoses were added based on the impression from a single CT A/P. Since then, patient has had more than one CT A/P with contrast, none of which note anything to suggest pancreatic pathology. Patient and daughter are unfamiliar with these diagnoses, deny associated work up or treatment by GI. Current abdominal pain started this morning, describes sharp epigastric pain with radiation into the back. Not as bad now, rates it as 6/10. Unable to tolerate PO intake, denies vomiting or diarrhea. Denies EtOH use, denies known history of hyperTGemia, denies recent illness, fever/chills. Patient had GB removed in 12/2023. Pt also reports worsening SOB. At baseline, patient is on 2L supplemental O2 when at rest, 4L with activity. She hasn't necessarily needed to bump up her O2 but feels that MCCLOUD has been more noticeable. Also reports increased cough and sputum production over the past week. ED Course: Labs significant for lipase of 7583 CT A/P with IV contrast negative. In particular, no pancreatic abnormalities noted. CTA chest negative Discharge Exam GENERAL APPEARANCE NAD, activity normal for age, well developed/ well nourished, no cyanosis, pallor, or diaphoresis. EYES lids/conjunctiva normal. EARS/NOSE/THROAT Mucous membranes moist, nares normal, lips/teeth normal uvula midline without oral pharyngeal erythema, e xudate or swelling TMs normal bilaterally. No lymphangitis/lymphedema. HEAD/NECK normocephalic atraumatic, no facial trauma, neck is supple. RESPIRATORY respiratory effort normal, speaks in full sentences, no tripod position, no accessory muscle use. Lungs clear to auscultation without rhonchi, wheezes, rales CARDIAC Regular rate and rhythm, no edema. ABDOMINAL Soft, ND/NT. No evidence of fluid wave. No pulsatile masses on exam, rebound tenderness, Luna sign or pain over Mcburney's point. MUSCLES/EXTREMITIES No abnormal range of motion, no swelling. SKIN Warm, pink and dry. No rashes, dermatoses, petechiae or lesions. NEUROLOGICAL Speech is clear and appropriate. Normal level of consciousness. Gait and coordination are normal. 5/5 strength in all extremities. PSYCH Normal mood and affect. Judgement/competence is appropriate Discharge Plan Discharge Items Patient Disposition: Home - Self-Care Reason For Visit: ABD PAIN Discharge Diagnosis: pancreatitis Condition on Discharge: Fair Activity: Resume your previous activity Non-emergency contact: Primary Care Provider Call non-emergency contact if: you have any medication questions Follow-up/Referrals: Benny Fong MD [Primary Care Provider] - Diet: Regular Addtl Attending Provider Instructions: Follow up with PMD in 2 weeks Pending Studies at Discharge: No Stand-Alone Forms: My Adore Me, Smoking Cessation Medications and DC Order Prescriptions: New ondansetron HCl 4 mg tablet 4 mg PO Q8H PRN (Reason: nausea and vomiting) Qty: 30 0RF Continued (DME) Oxygen humidifier for concentrator See Rx Instructions .Route .MEDSUPPLY Qty: 1 0RF Rx Instructions: As directed diltiazem HCl 120 mg capsule,extended release 24 hr 120 mg PO QAM Qty: 90 3RF hyoscyamine sulfate 0.125 mg tablet, sublingual 0.125 mg sublingual BID PRN (Reason: abdominal pain) Qty: 60 2RF THC gummy 1 gummy PO DAILY PRN (Reason: pain) Qty: 30 0RF Combivent Respimat 20-100 mcg/actuation mist 1 puff inhalation QID PRN (Reason: shortness of breath or wheezing) Qty: 4 11RF Rx Instructions: space evenly during waking hours hydroxyzine HCl 10 mg tablet 10 mg PO TID PRN (Reason: anxiousness) Qty: 90 3RF Rx Instructions: May cause drowsiness. [place]uvayre 3 mg/2.5 mL suspension for nebulization 3 mg inhalation BID Qty: 150 5RF Patient Comments: 12/27/23, does not have medication yet ondansetron HCl 4 mg tablet 4 mg PO Q6H PRN (Reason: nausea and vomiting) 7 Days Qty: 60 2RF lorazepam 0.5 mg tablet 0.5 mg PO QID PRN (Reason: anxiety) Qty: 120 0RF (DME) nebulizers Misc See Rx Instructions .Route Qty: 1 0RF Rx Instructions: As directed fluoxetine 20 mg capsule 20 mg PO DAILY Qty: 30 5RF omeprazole 20 mg tablet,delayed release (DR/EC) 20 mg PO QAM Qty: 30 5RF (DME) Wheeled Walker Misc See Rx Instructions .Route Qty: 1 0RF Rx Instructions: Dontrell size, with hand brakes and seat ipratropium-albuterol 0.5 mg-3 mg(2.5 mg base)/3 mL solution for nebulization 3 ml inhalation Q4H PRN (Reason: wheezing) Qty: 180 5RF (DME) Portable Oxygen Misc See Rx Instructions .MEDSUPPLY Qty: 1 0RF Rx Instructions: Oxygen 2 liters continuous at rest and 4 L continuous via nasal cannula on exertion with portable concentrator. ALEXANDRE 99 sodium chloride 3 % solution for nebulization 4 ml inhalation BID PRN (Reason: secretions) Qty: 750 3RF Patient Comments: 12/27/23, does not have medication yet Breztri Aerosphere 160-9-4.8 mcg/actuation HFA aerosol inhaler 2 inh inhalation BID Qty: 10.7 6RF guaifenesin [Mucinex] 600 mg tablet extended release 12hr 1,200 mg PO BID PRN (Reason: Congestion) Qty: 120 2RF cholecalciferol (vitamin D3) [Vitamin D3] 25 mcg (1,000 unit) capsule 1,000 unit PO QAM cyanocobalamin (vitamin B-12) 1,000 mcg capsule 1,000 mcg PO QAM levothyroxine 25 mcg tablet 25 mcg PO DAILYBB Rx Instructions: Take about 30 minutes prior to other medication and food. mirtazapine 30 mg tablet 30 mg PO HS Rx Instructions: for sleep, mood and appetite. Discharge Orders: Discharge Order (Routine); Ordered 07/24/24 Ordered By: Garrick Aguirre Admission Data Admit Date/Time: 07/20/24 00:26 Attending Provider: Garrick Aguirre Admit Provider: Tera Fierro Primary Care Provider: Benny Fong Other Providers: Fabi Acuna Hospital Stay Data Consultations 07/19/24 22:42 ED Decision to Admit Stat Diagnostic Imagining Performed 07/19/24 17:54 CT abd pelvis IV con only Stat 07/19/24 18:21 CT angio chest PE protocol Stat Pending Results Patient Have Any Pending Studies at Discharge: No Discharge Instructions Given to Patient (Per Discharging Provider) Follow up with PMD in 2 weeks Total Time Total Time Spent Total Time Spent (In Minutes): 50 Coding Level of Care Code 16654 INP/OBS DISCH >30 MIN Diagnoses Acute pancreatitis K85.90 Chronic obstructive pulmonary disease J44.9 Elevated lipase R74.8 Status post cholecystectomy Z90.49 Abdominal pain R10.9 Weight loss, non-intentional R63.4 Chronic respiratory failure with hypoxia J96.11 Chronic constipation K59.09 Depression F32.9 Generalized anxiety disorder F41.1 SVT (supraventricular tachycardia) I47.1 Hypothyroidism E03.9 Hypertension I10
[2024-07-24 10:13] VITALS: BP 131/66; PULSE 74
== END 2024-07-24 11:26 | disposition home or self-care (01) | DRG 439 ==
LOC: ED 16:20 → SUATTDRO 07-20 00:26 → 2N 07-20 00:26